=== PATIENT | female | born 1995 | race Caucasian/White ===

== ENCOUNTER 2021-02-10 19:06 | Outpatient (REF) | payer OTHER, SELFPAY | END 2021-02-10 19:07 | disposition home or self-care (01) | LOC: HO.LNP 19:06 | PROVIDERS: Visit Provider Family Medicine | DX: Z20.822 Contact with and (suspected) exposure to COVID-19 (principal) | CPT/HCPCS: U0003; U0005 ==

== ENCOUNTER 2023-05-16 09:35 | Outpatient (REF) | payer OTHER, SELFPAY ==
[2023-05-16 12:14] LABS: Amphetamine Screen Urine Not Detected (Not Detect); Barbiturates, Urine Not Detected (Not Detect); Benzodiazepines Screen Urine Not Detected (Not Detect); Cannabinoid Screen Urine POSITIVE (Not Detect); Cocaine Screen Urine Not Detected (Not Detect); Fentanyl, urine Not Detected (Not Detect); Opiate Screen Urine Not Detected (Not Detect); Phencyclidine Screen Urine Not Detected (Not Detect)
== END 2023-05-16 09:36 | disposition home or self-care (01) ==
LOC: HO.WFDLDS 09:35
PROVIDERS: Visit Provider Internal Medicine
DX: M51.36 Other intervertebral disc degeneration, lumbar region (principal)
CPT/HCPCS: 80307

== ENCOUNTER 2023-08-17 10:45 | Outpatient (AMB) | payer OTHER, SELFPAY ==
[2023-08-17 10:57] VITALS: BP 118/82; PULSE 64; RESP 17; O2SAT 100; BMI 32.9
--- NOTE | 2023-08-17 10:57 | MHC.PC.OV ---
Vital Signs 08/17/23 10:57 Height 5 ft Weight 168 lb 4 oz BMI 32.9 BP 118/82 Blood Pressure Location Lt brachial Position Sitting Respiration 17 Pulse 64 Pulse Source Pulse Oximeter Pulse Oximetry (%) 100 Oxygen Delivery Method Room Air Intake Visit Reasons: ED F/U from [facility] 08/06/23 Intake Note: Pt here for a follow-up appointment following their visit to the [facility]'s emergency department on August 06, 2023, due to a right arm injury. The patient will require a referral to an network and threat support specialist for potential cortisone injections. 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 Accompanied by: Self / Same As Patient Allergies Penicillins [PCN] Allergy (Mild, Verified 08/17/23 11:18) HIVES penicillin V Allergy (Unknown, Verified 08/17/23 11:18) hives Medication List - Last Reconciled 08/17/23 by Logan Vergara PA-C cyclobenzaprine 5 mg PO BID PRN gabapentin 300 mg PO TID tramadol 50 mg PO Q6-8H PRN 30 days Tobacco use date assessed: 12/21/22 Dental Screening Dental Screen Date: 08/17/23 Did you have a dental visit in the last 12 months?: No Did you have a dental problem in the last 6 months where you did not have access to dental care?: No Was dental information given to patient?: Yes HPI ED F/U from [facility] 08/06/23 HPI Details Patient is a 28-year-old female here today for an ED follow-up visit. 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 She was seen at a local ED for her right wrist pain that mostly located over the volar region and radiates into her palm are region. She does report some numbness and tingling at times. She has been wearing a wrist splint with compression glove which is somewhat helpful. She does regularly take tramadol and gabapentin though has not been helping her pain. 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 [facility] Medical History Polysubstance abuse Tobacco abuse Obesity Migraine Bipolar disorder ADD (attention deficit disorder) Asthma Low back pain Surgical History History of cholecystectomy History of section Family History Father Medical history unknown Mother Hypothyroidism High cholesterol COPD (chronic obstructive pulmonary disease) Hypertension Family/Other FH: mental illness Social History Housing: House Alcohol intake: current Alcohol intake frequency: holidays/special occasions only Patient Tobacco Use Status: Current everyday Tobacco user Tobacco use type: Cigarette Cigarettes Per Day: 4 e-Cigarette/Vaping Use: Never Used Second Hand Smoke Exposure: No service: No Current occupational status: employed Cognitive needs: No Hearing needs: No Vision needs: No Questionnaire Thrive Questionnaire Date Thrive assessed: 12/21/22 JARRET-7 AMB Questionnaire JARRET-7 Date JARRET - 7 assessed: 12/21/22 Source: Developed by Drs. Rocael Diaz, Beth Escalona, Moise Enciso and colleagues, with an educational lainey from [employer]. Review of Systems Const Denies headache(s) Eyes Denies loss of vision ENT Denies vertigo, Denies dizziness, Denies headache(s) and Denies sore throat Card Denies chest pain, Denies leg edema and Denies lightheadedness Resp Denies cough, Denies hemoptysis and Denies wheezing GI Denies abdominal pain, Denies melena, Denies constipation, Denies diarrhea and Denies vomiting Denies urinary frequency, Denies dysuria and Denies urinary urgency Musc Denies arthralgias, Denies joint swelling, Denies numbness and Denies tingling Neuro Denies Abnormal speech present, Denies behavioral changes, Denies vertigo, Denies dizziness, Denies headache(s), Denies loss of vision, Denies memory loss, Denies numbness and Denies tingling Psych Denies anxiety, Denies behavioral changes, Denies depression, Denies memory loss and Denies panic attacks Travis/Lymph Denies easy bleeding and Denies easy bruising Aller/Immun Denies wheezing Physical exam (Primary Care) Vital Signs: Last Vital Signs Pulse 64 08/17/23 10:57 Resp 17 08/17/23 10:57 BP 118/82 08/17/23 10:57 Pulse Ox 100 08/17/23 10:57 Oxygen Delivery Method Room Air 08/17/23 10:57 BMI result Body Mass Index 32.9 Tobacco/Smoking Status: Tobacco use Status Tobacco use date assessed 12/21/22 08/17/23 11:01 Patient Tobacco Use Status Current everyday Tobacco 08/17/23 11:01 Tobacco use type Cigarette 08/17/23 11:01 e-Cigarette/Vaping Use Never Used 08/17/23 11:01 Thrive Assessment: Date of Thrive Assessment Date Thrive assessed 12/21/22 08/17/23 11:01 Const General: healthy appearing, no acute distress, alert and awake Nutritional Appearance: well nourished Orientation/consciousness: oriented to person, oriented to place and oriented to time HENMT Ears: TM's normal bilaterally General nose exam: Normal nasal mucous membranes and turbinates present Eyes Conjunctivae: conjunctivae normal Sclerae: sclerae normal Pupils: Equal, round and reactive pupils present Neck Neck: Yes no lymphadenopathy and Yes no JVD Thyroid: Thyroid normal Carotids: no bruits Resp Effort & Inspection: normal respiratory effort and not tachypneic Auscultation: no crackles, no rales, no rhonchi and no wheezes Cardio Rate: regular rate Rhythm: regular rhythm Heart sounds: no murmurs and normal S1 and S2 GI Palpation (GI): Soft to palpation, nontender, no hepatomegaly and no splenomegaly Auscultation: normal bowel sounds Skin General skin exam: no rashes or lesions noted and dry skin Neuro General: oriented to person, oriented to place and oriented to time Cranial nerves: Yes Equal, round and reactive pupils present Speech: No Abnormal speech present Gait exam (Neuro): Normal gait present Motor exam (neuro): no tremor noted Extrem Other: RIGHT WRIST: DECREASED RANGE OF MOTION OF THE RIGHT WRIST DUE TO PAIN STIFFNESS. Right upper extremity: full ROM Left upper extremity: full ROM Hand/finger images: 1. Some tenderness to palpation in the area outlined. No notable swelling Right lower extremity: full ROM; no edema Left lower extremity: full ROM; no edema Psych Mental Status: mental status grossly normal Speech and movement: Normal speech and movement present Affect: normal affect Attitude: cooperative Thought process: Normal thought process present Assessment and Plan Assessment & Plan (1) Right wrist tendinitis: Code(s): M77.8 - Other enthesopathies, not elsewhere classified Plan: Patient's signs and symptoms are concerning for right wrist tendinitis. Will offer anti-inflammatory to use on a daily basis to reduce swelling. Will likely benefit from occupational therapy to reduce hand/ wrist pain. Given patient note for work to be off for the next 2 weeks as rest of the upper extremity may be helpful in this case. Will refer to orthopedics for evaluation of possible need for cortisone injection. (2) Right hand paresthesia: Code(s): R20.2 - Paresthesia of skin Plan: Due to patient's reports of numbness and tingling on occasion in her hand will evaluate for carpal tunnel syndrome with an EMG. Orders: Orders OT Evaluation and Treatment 08/17/23 M77.8 - Other enthesopathies, not elsewhere classified NE electromyogram (EMG) 08/17/23 R20.2 - Paresthesia of skin Referrals Orthopedics Referral M77.8 - Other enthesopathies, not elsewhere classified Medications: New miscellaneous medical supply 1 ea miscellaneous DAILY 99 days 1 ea 0RF M77.8 - Other enthesopathies, not elsewhere classified diclofenac sodium 50 mg PO BID 15 days 30 tabs 0RF M77.8 - Other enthesopathies, not elsewhere classified Refilled tramadol 50 mg PO Q6-8H 30 days PRN 120 tabs 0RF pain M54.5 - Low back pain Coding Level of Care Code Est Pt Level 4 (37352) Diagnoses Right wrist tendinitis M77.8 Right hand paresthesia R20.2
== END 2023-08-17 11:37 | disposition home or self-care (01) ==
PROVIDERS: PCP Internal Medicine; Visit Provider Physician Assistant
DX: M77.8 Other enthesopathies, not elsewhere classified (principal); R20.2 Paresthesia of skin; Z04.2 Encounter for examination and observation following work accident
CPT/HCPCS: 99214

== ENCOUNTER 2023-08-29 09:54 | Outpatient (AMB) | payer OTHER, SELFPAY ==
[2023-08-29 10:01] VITALS: BP 134/78; PULSE 78; O2SAT 98; BMI 33.2
--- NOTE | 2023-08-29 10:01 | A.OFFPC_ITS ---
Vital Signs 08/29/23 10:01 Height 5 ft Weight 170 lb BMI 33.2 BP 134/78 Blood Pressure Location Lt brachial Position Sitting Pulse 78 Pulse Source Pulse Oximeter Pulse Oximetry (%) 98 Oxygen Delivery Method Room Air Intake Visit Reasons: f/u right wrist clifford Allergies Penicillins [PCN] Allergy (Mild, Verified 08/29/23 10:01) HIVES penicillin V Allergy (Unknown, Verified 08/29/23 10:01) hives Tobacco use date assessed: 12/21/22 Dental Screening Dental Screen Date: 08/29/23 Did you have a dental visit in the last 12 months?: Yes Did you have a dental problem in the last 6 months where you did not have access to dental care?: No Was dental information given to patient?: Patient has dentist HPI f/u right wrist clifford HPI Details 28-year-old obese female smoker coming in for follow-up. Patient has an FMLA form brought in. I have last seen the patient November 2022. Review of the notes 08/05/2023 was in ER for right hand wrist pain stated that the pain has been there for 1 and half months x-ray done revealing negative results diagnosis of de Quervain tenosynovitis. Patient has been seen by the nurse practitioner in the office and has been referred to the Ortho. Schedule is 09/20/2023. 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 Patient also complains of having numbness of the right fingers states dropping stuff PFSH Medical History Polysubstance abuse Tobacco abuse Obesity Migraine Bipolar disorder ADD (attention deficit disorder) Asthma Low back pain Surgical History History of cholecystectomy History of section Family History (Updated 08/29/23 @ 10:02 by Gema Watts CMA) Father Medical history unknown Mother Hypothyroidism High cholesterol COPD (chronic obstructive pulmonary disease) Hypertension Family/Other FH: mental illness Social History Housing: House Alcohol intake: current Alcohol intake frequency: holidays/special occasions only Patient Tobacco Use Status: Current everyday Tobacco user Tobacco use type: Cigarette Cigarettes Per Day: 4 e-Cigarette/Vaping Use: Never Used Second Hand Smoke Exposure: No service: No Current occupational status: employed Cognitive needs: No Hearing needs: No Vision needs: No Questionnaire PHQ-9 Over the last 2 weeks, how often have you been bothered by any of the following problems? 1. Little interest or pleasure in doing things: not at all 2. Feeling down, depressed, or hopeless: not at all 3. Trouble falling or staying asleep, or sleeping too much: not at all 4. Feeling tired or having little energy: not at all 5. Poor appetite or overeating: not at all 6. Feeling bad about yourself - or that you are a failure or have let yourself or your family down: not at all 7. Trouble concentrating on things, such as reading the newspaper or watching television: not at all 8. Moving or speaking so slowly that other people could have noticed. Or the opposite - being so fidgety or restless that you have been moving around a lot more than usual: not at all 9. Thoughts that you would be better off or of hurting yourself in some way: not at all Total score: 0 Depression Screening Interpretation: Negative Depression Screening Done: Yes Source: Developed by Drs. Rocael Diaz, Moise Lion and colleagues, with an educational lainey from [employer]. Thrive Questionnaire Date Thrive assessed: 12/21/22 AUDIT C Alcohol Use Questionnaire (AUDIT-C) 1. How often do you have a drink containing alcohol?: Monthly or less 2. How many drinks containing alcohol do you have on a typical day when you are drinking?: 1 or 2 3. How often do you have six or more drinks on one occasion?: Never Total Score: 1 JARRET-7 AMB Questionnaire JARRET-7 Date JARRET - 7 assessed: 12/21/22 Source: Developed by Drs. Rocael Diaz, Moise Lion and colleagues, with an educational lainey from [employer]. Physical exam (Primary Care) Vital Signs: Last Vital Signs Pulse 78 08/29/23 10:01 BP 134/78 08/29/23 10:01 Pulse Ox 98 08/29/23 10:01 Oxygen Delivery Method Room Air 08/29/23 10:01 BMI result Body Mass Index 33.2 Tobacco/Smoking Status: Tobacco use Status Tobacco use date assessed 12/21/22 08/29/23 10:07 Patient Tobacco Use Status Current everyday Tobacco 08/29/23 10:07 Tobacco use type Cigarette 08/29/23 10:07 e-Cigarette/Vaping Use Never Used 08/29/23 10:07 PHQ-9: PHQ-9 Score PHQ-9: Total score 0 08/29/23 10:07 Depression Screening Interpretation: Negative Thrive Assessment: Date of Thrive Assessment Date Thrive assessed 12/21/22 08/29/23 10:07 Const General: alert; No acute distress Eyes Conjunctivae: conjunctivae normal Resp Auscultation: clear to auscultation bilaterally Cardio Rate: regular rate Rhythm: regular rhythm GI Inspection: Yes normal to inspection Extrem General: Yes normal to inspection and No edema Assessment and Plan Assessment & Plan (1) Right wrist tendinitis: Code(s): M77.8 - Other enthesopathies, not elsewhere classified Plan: Patient will be seen by Orthopedics 09/20/2023 (2) Right hand paresthesia: Code(s): R20.2 - Paresthesia of skin Plan: Patient has a nerve conduction test in 09/07/2023 Coding Level of Care Code Est Pt Level 3 (25639) Diagnoses Right wrist tendinitis M77.8 Right hand paresthesia R20.2
== END 2023-08-29 10:42 | disposition home or self-care (01) ==
PROVIDERS: PCP Internal Medicine; Visit Provider Internal Medicine
DX: M77.8 Other enthesopathies, not elsewhere classified (principal); R20.2 Paresthesia of skin
CPT/HCPCS: 99213

== ENCOUNTER 2023-09-20 09:53 | Outpatient (AMB) | payer OTHER, SELFPAY ==
--- NOTE | 2023-09-20 10:01 | A.OFFVIS_ITS ---
Intake Vital Signs 09/20/23 10:10 Height 5 ft 7 in Weight 170 lb BMI 26.6 Handedness Right Intake Visit Reasons: New Pt - right hand pain Intake Note: Cecily is a 28 year old right hand dominant female who presents today as a new patient for a evaluation of her right hand pain. 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 She states that her pain has been ongoing pain for 4 months. Having off and on numbness and tingling on the whole hand. She has a velcro thumb wrist brace which is not providing her with no relief. Patient is also taking Diclofinenac 50 mg which is not giving her relief per patient. Allergies Penicillins [PCN] Allergy (Mild, Verified 09/20/23 10:08) HIVES penicillin V Allergy (Unknown, Verified 09/20/23 10:08) hives HPI New Pt - right hand pain HPI Details 28-year-old right hand dominant female anyi artis presents in the office today, as a new patient, for an evaluation of right hand pain. 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 She states she has intermittent numbness and tingling in the right hand. She claims she has been using a velcro thumb wrist brace with no relief. She confirms taking Diclofenac 50 mg with no relief. 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 [facility] Medical History Polysubstance abuse Tobacco abuse Obesity Migraine Bipolar disorder ADD (attention deficit disorder) Asthma Low back pain Surgical History History of cholecystectomy History of section Family History (Updated 08/29/23 @ 10:02 by Gema Watts CMA) Father Medical history unknown Mother Hypothyroidism High cholesterol COPD (chronic obstructive pulmonary disease) Hypertension Family/Other FH: mental illness Housing: House Alcohol intake: current Alcohol intake frequency: holidays/special occasions only Patient Tobacco Use Status: Current everyday Tobacco user Tobacco use type: Cigarette Cigarettes Per Day: 4 e-Cigarette/Vaping Use: Never Used Second Hand Smoke Exposure: No service: No Current occupational status: employed Cognitive needs: No Hearing needs: No Vision needs: No Review of Systems Const All systems reviewed & are unremarkable except as noted in HPI and below Physical Exam Vital Signs: BMI result Body Mass Index 26.6 Const General: cooperative and no acute distress Orientation/consciousness: patient oriented x3 Resp Effort & Inspection: normal respiratory effort and able to speak in complete sentences Cardio Peripheral pulses: Peripheral pulses 2+ throughout Skin General skin exam: no rashes or lesions noted Neuro General: patient oriented x3 Extrem Other: Right hand: Numbness and tingling in the entire hand intermittently. Unable to assess Tinel's due to pain. Tenderness to palpation along the first dorsal compartment. Unable to assess Finklestein's due to pain. Unable to assess Tinel's due to pain. Right hand is normal to inspection. No ecchymosis, erythema, or edema. Able to perform full finger flexion, extension, abduction, adduction, finger cross, okay sign, and thumbs up without deficit. Able to make a closed fist. Capillary refill is brisk. Radial pulse intact. Assessment & Plan Assessment & Plan (1) Right carpal tunnel syndrome: Code(s): G56.01 - Carpal tunnel syndrome, right upper limb (2) De Quervain's tenosynovitis, right: Code(s): M65.4 - Radial styloid tenosynovitis [de Quervain] Plan Ms. Dimas is a 28-year-old right hand dominant female who presents in the office today, as a new patient, for an evaluation of right hand pain. 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 She states she has intermittent numbness and tingling in the right hand. She claims she has been using a velcro thumb wrist brace with no relief. She confirms taking Diclofenac 50 mg with no relief. 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 The patient is scheduled for an EMG study on 10/05/2023. She is here today to discuss her work status. At this time she will be out of work until her follow up. She is currently wearing a velcro thumb spica splint, which I feel is appropriate at this time to allow for the rest of her thumb and associated pain from the de quervain?s. However, I instructed the patient that she should come out of the splint multiple times a day to work on gentle ROM to help avoid stiffness. Exercises were demonstrated for her while in the office today and she demonstrates understanding. Follow up will be with Dr. Gonzalez after the EMG is obtained. Patient Instructions: Scribed for Bhakti Waldron PA-C by Amy Mehta medical instructor, on 09/20/2023 at 9:56 am, EST. Coding Level of Care Code New Pt Level 4 (60143) Diagnoses Right carpal tunnel syndrome G56.01 De Quervain's tenosynovitis, right M65.4
[2023-09-20 10:10] VITALS: BMI 26.6
== END 2023-09-20 10:48 | disposition home or self-care (01) ==
PROVIDERS: PCP Internal Medicine; Visit Provider Physician Assistant
DX: G56.01 Carpal tunnel syndrome, right upper limb (principal); M65.4 Radial styloid tenosynovitis [de Quervain]
CPT/HCPCS: 99203

== ENCOUNTER → 2023-09-20 09:53 | Outpatient (BNVA) | payer OTHER, SELFPAY | PROVIDERS: PCP Internal Medicine; Visit Provider Physician Assistant | DX: G56.01 Carpal tunnel syndrome, right upper limb (principal); M65.4 Radial styloid tenosynovitis [de Quervain] | CPT/HCPCS: 99202 ==

== ENCOUNTER 2023-09-23 11:56 | Outpatient (AMB) | payer OTHER, SELFPAY ==
[2023-09-23 12:03] VITALS: BP 104/70; PULSE 62; O2SAT 99; BMI 33.5
--- NOTE | 2023-09-23 12:03 | A.OFFPC_ITS ---
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 John sloan of Dr. Lyman last seen in August. Patient brought in FMLA paperwork for completion at that time. for right hand wrist pain stated that the pain has been there for 1 and half months x-ray done revealing negative results diagnosis of de Quervain tenosynovitis. 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 FMLA paper work was completed by them and patient to be out of work until her follow up with ortho on 10/05/23. Patient questioning what happens when her FMLA runs out, patient made aware ortho will see her at her follow up, dicuss what her testing shows and further plan with patient at time. Pateint verbalizes understanding. Patient requesting tramadol refill and diclofenac cream refill. previously sent by Dr. Lyman, RX sent. [facility] Medical History Polysubstance abuse Tobacco abuse Obesity Migraine Bipolar disorder ADD (attention deficit disorder) Asthma Low back pain Surgical History History of cholecystectomy History of section Family History Father Medical history unknown Mother Hypothyroidism High cholesterol COPD (chronic obstructive pulmonary disease) Hypertension Family/Other FH: mental illness Social History Housing: House Alcohol intake: current Alcohol intake frequency: holidays/special occasions only Patient Tobacco Use Status: Current everyday Tobacco user Tobacco use type: Cigarette Cigarettes Per Day: 4 e-Cigarette/Vaping Use: Never Used Second Hand Smoke Exposure: No service: No Current occupational status: employed Cognitive needs: No Hearing needs: No Vision needs: No Questionnaire PHQ-9 Over the last 2 weeks, how often have you been bothered by any of the following problems? 1. Little interest or pleasure in doing things: not at all 2. Feeling down, depressed, or hopeless: not at all 3. Trouble falling or staying asleep, or sleeping too much: not at all 4. Feeling tired or having little energy: not at all 5. Poor appetite or overeating: not at all 6. Feeling bad about yourself - or that you are a failure or have let yourself or your family down: not at all 7. Trouble concentrating on things, such as reading the newspaper or watching television: not at all 8. Moving or speaking so slowly that other people could have noticed. Or the opposite - being so fidgety or restless that you have been moving around a lot more than usual: not at all 9. Thoughts that you would be better off or of hurting yourself in some way: not at all Total score: 0 Depression Screening Interpretation: Negative Depression Screening Done: Yes Source: Developed by Drs. Rocael Diaz, Beth Escalona, Moise Enciso and colleagues, with an educational lainey from [employer]. Thrive Questionnaire Date Thrive assessed: 12/21/22 JARRET-7 AMB Questionnaire JARRET-7 Date JARRET - 7 assessed: 12/21/22 Source: Developed by Drs. Rocael Diaz, Beth Escalona, Moise Enciso and colleagues, with an educational lainey from [employer]. Review of Systems Const Denies chills, Denies fatigue, Denies fever(s) and Denies poor appetite Eyes Denies no additional complaints ENT Reports Normal hearing present Card Denies chest pain, Denies syncope, Denies rapid heart rate and Denies dyspnea Resp Denies cough and Denies dyspnea GI Denies change in stool character, Denies constipation, Denies diarrhea, Denies nausea and Denies vomiting Denies urinary frequency, Denies dysuria and Denies urinary urgency Neuro Reports Normal hearing present, Denies confusion and Denies syncope Psych Denies confusion Endo Denies fatigue Physical exam (Primary Care) Vital Signs: Last Vital Signs Pulse 62 09/23/23 12:03 BP 104/70 09/23/23 12:03 Pulse Ox 99 09/23/23 12:03 Oxygen Delivery Method Room Air 09/23/23 12:03 BMI result Body Mass Index 33.5 Tobacco/Smoking Status: Tobacco use Status Tobacco use date assessed 12/21/22 09/23/23 12:05 Patient Tobacco Use Status Current everyday Tobacco 09/23/23 12:05 Tobacco use type Cigarette 09/23/23 12:05 e-Cigarette/Vaping Use Never Used 09/23/23 12:05 PHQ-9: PHQ-9 Score PHQ-9: Total score 0 09/23/23 12:16 Depression Screening Interpretation: Negative Thrive Assessment: Date of Thrive Assessment Date Thrive assessed 12/21/22 09/23/23 12:05 Const General: No confusion Orientation/consciousness: No confusion HENMT Head: Yes normocephalic and Yes atraumatic Eyes Conjunctivae: conjunctivae normal Chest Chest palpation & inspection: normal inspection of the chest Resp Effort & Inspection: normal respiratory effort Auscultation: clear to auscultation bilaterally, no crackles, no rhonchi and no wheezes Cardio Rate: regular rate Rhythm: regular rhythm Heart sounds: S1 normal heart sound present and S2 normal heart sound present GI Inspection: Yes normal to inspection Neuro General: No confusion Cranial nerves: Yes Normal hearing present Extrem General: No edema Assessment and Plan Assessment & Plan (1) De Quervain's tenosynovitis, right: Code(s): M65.4 - Radial styloid tenosynovitis [de Quervain] Plan: Continue to follow-up with orthopedic. MARY ANN paperwork completed by orthopedic. Patient has upcoming appointment scheduled on 10/05/2023 for which she will discuss plan of care. Refill sent on diclofenac cream Refill sent on patient's tramadol. (2) Lumbar degenerative disc disease: Code(s): M51.36 - Other intervertebral disc degeneration, lumbar region Plan: Patient currently following with [facility]. Patient requesting refill on gabapentin and cyclobenzaprine which are prescribed by [facility]. Patient advised to follow-up with them for refills on these medications. Patient agreeable to plan of care. Plan Keep scheduled follow-up with PCP or follow-up sooner if needed. Medications: Refilled diclofenac sodium 50 mg PO BID 15 days 30 tabs 0RF M77.8 - Other enthesopathies, not elsewhere classified tramadol 50 mg PO Q6-8H 30 days PRN 120 tabs 0RF pain M54.5 - Low back pain Coding Level of Care Code Est Pt Level 3 (58457) Diagnoses De Quervain's tenosynovitis, right M65.4 Lumbar degenerative disc disease M51.36
== END 2023-09-23 13:01 | disposition home or self-care (01) ==
PROVIDERS: PCP Internal Medicine; Visit Provider Nurse Practitioner Family
DX: M65.4 Radial styloid tenosynovitis [de Quervain] (principal); M51.36 Other intervertebral disc degeneration, lumbar region
CPT/HCPCS: 99213

== ENCOUNTER 2023-09-29 11:50 | Outpatient (REF) | payer OTHER, SELFPAY ==
[2023-09-29 14:50] LABS: Amphetamine Screen Urine Not Detected (Not Detect); Barbiturates, Urine Not Detected (Not Detect); Benzodiazepines Screen Urine Not Detected (Not Detect); Cannabinoid Screen Urine POSITIVE (Not Detect); Cocaine Screen Urine Not Detected (Not Detect); Fentanyl, urine Not Detected (Not Detect); Opiate Screen Urine Not Detected (Not Detect); Phencyclidine Screen Urine Not Detected (Not Detect)
== END 2023-09-29 11:51 | disposition home or self-care (01) ==
LOC: HO.WFDLDS 11:50
PROVIDERS: Visit Provider Internal Medicine
DX: M51.36 Other intervertebral disc degeneration, lumbar region (principal)
CPT/HCPCS: 80307

== ENCOUNTER 2023-10-05 10:16 | Outpatient (REF) | payer OTHER, SELFPAY ==
--- NOTE | 2023-10-05 10:19 | EMG_ITS ---
Please see scanned EMG / Nerve Conduction Report. MTDD
== END 2023-10-05 10:17 | disposition home or self-care (01) ==
LOC: HO.NEURO 10:16
PROVIDERS: PCP Internal Medicine; Visit Provider Physician Assistant
DX: R20.2 Paresthesia of skin (principal)
CPT/HCPCS: 95886; 95911

== ENCOUNTER 2024-02-15 14:38 | Outpatient (AMB) | payer OTHER, SELFPAY ==
--- NOTE | 2024-02-15 14:38 | A.OFFPC_ITS ---
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 Allergies Penicillins [PCN] Allergy (Mild, Verified 02/15/24 14:39) HIVES penicillin V Allergy (Unknown, Verified 02/15/24 14:39) hives Medication List - Last Reconciled 02/15/24 by Isabel Lyman MD cyclobenzaprine 5 mg PO BID PRN gabapentin 300 mg PO TID miscellaneous medical supply 1 ea miscellaneous DAILY 99 days tramadol 50 mg PO Q6-8H PRN 30 days Tobacco use date assessed: 02/15/24 Dental Screening Dental Screen Date: 09/23/23 HPI 3M Follow Up 2 HPI Details 28-year-old obese female with a history of right de Quervain tenosynovitis and lumbar disc degenerative disease last seen in September 2023. Patient coming in through Telehealth. Patient complains of low back pain denies any fall or trauma and discussed with the patient that with her BMI with height of 4'11 body mass index is running at 33 she does have to lose the weight. Reminded also about the blood work. [facility] Medical History Polysubstance abuse Tobacco abuse Obesity Migraine Bipolar disorder ADD (attention deficit disorder) Asthma Low back pain Surgical History History of cholecystectomy History of section Family History Father Medical history unknown Mother Hypothyroidism High cholesterol COPD (chronic obstructive pulmonary disease) Hypertension Family/Other FH: mental illness Social History Housing: House Alcohol intake: current Alcohol intake frequency: holidays/special occasions only Patient Tobacco Use Status: Current everyday Tobacco user Tobacco use type: Cigarette Cigarettes Per Day: 4 e-Cigarette/Vaping Use: Never Used Second Hand Smoke Exposure: No service: No Current occupational status: employed Cognitive needs: No Hearing needs: No Vision needs: No Questionnaire Thrive Questionnaire Date Thrive assessed: 12/21/22 AUDIT C Alcohol Use Questionnaire (AUDIT-C) 1. How often do you have a drink containing alcohol?: Monthly or less 2. How many drinks containing alcohol do you have on a typical day when you are drinking?: 1 or 2 3. How often do you have six or more drinks on one occasion?: Never Total Score: 1 JARRET-7 AMB Questionnaire JARRET-7 Date JARRET - 7 assessed: 12/21/22 Source: Developed by Drs. Rocael Diaz, Beth Escalona, Moise olsen nd colleagues, with an educational lainey from [employer]. Physical exam (Primary Care) Tobacco/Smoking Status: Tobacco use Status Tobacco use date assessed 02/15/24 02/15/24 14:40 Patient Tobacco Use Status Current everyday Tobacco 02/15/24 14:40 Tobacco use type Cigarette 02/15/24 14:40 e-Cigarette/Vaping Use Never Used 02/15/24 14:40 Thrive Assessment: Date of Thrive Assessment Date Thrive assessed 12/21/22 02/15/24 14:40 Telehealth Telehealth Telehealth Platform: Telephone Location of provider rendering services: practice address Location of patient: address on file Patient Identification confirmed using: Name, : Yes Telehealth method: video (iphone ) Patient verbally consented to treatment: Yes Patient verbally consented to billing insurance company: Yes Patient informed of any privacy concerns related to visit: Yes Assessment and Plan Assessment & Plan (1) Obesity: Code(s): E66.9 - Obesity, unspecified Qualifiers: Obesity type: due to excess calories Obesity classification: adult class 3 (BMI >= 40) Serious obesity comorbidity presence: without serious comorbidity Body mass index: BMI 40.0-44.9 Qualified Code(s): E66.01 - Morbid (severe) obesity due to excess calories; Z68.41 - Body mass index [BMI]40.0- 44.9, adult Plan: Diet and exercise (2) Low back pain: Comment: MRI January 2019 small annulus tear lumbar, x-ray 2018 mild degenerative lumbar disc with anterolisthesis 2 mm Code(s): M54.5 - Low back pain Plan: Patient presently on pain medication and advised to get x-rays done (3) Tobacco abuse: Comment: Vaping November 2022 Code(s): Z72.0 - Tobacco use Plan: Patient was advised strongly to stop! Orders: Orders XR lumbar spine 2-3V Today M51.36 - Other intervertebral disc degeneration, lumbar region Free T4 (Free Thyroxine) Today M51.36 - Other intervertebral disc degeneration, lumbar region Vitamin B12 and Folate Today M51.36 - Other intervertebral disc degeneration, lumbar region Complete Blood Count Auto Diff Today M51.36 - Other intervertebral disc degeneration, lumbar region Comprehensive Met. Panel Today M51.36 - Other intervertebral disc degeneration, lumbar region Thyroid Stimulating Hormone Today M51.36 - Other intervertebral disc degeneration, lumbar region Lipid Panel Today E78.00 - Pure hypercholesterolemia, unspecified, M51.36 - Other intervertebral disc degeneration, lumbar region Medications: Discontinued diclofenac sodium Discontinued Reason: Doctor's Order 50 mg PO BID 15 days 30 tabs 0RF M77.8 - Other enthesopathies, not elsewhere classified Coding Level of Care Code Tele Est Pt Level 4 (81446) Diagnoses Class 3 severe obesity due to excess calories without serious comorbidity with body mass index (BMI) of 40.0 to 44.9 in adult E66.01; Z68.41 Obesity type: due to excess calories Obesity classification: adult class 3 (BMI >= 40) Serious obesity comorbidity presence: without serious comorbidity Body mass index: BMI 40.0-44.9 Low back pain M54.5 Tobacco abuse Z72.0
== END 2024-02-15 15:55 | disposition home or self-care (01) ==
LOC: HO.HMGH 14:38
PROVIDERS: PCP Internal Medicine; Visit Provider Internal Medicine
DX: E66.01 Morbid (severe) obesity due to excess calories (principal); Z68.41 Body mass index [BMI] 40.0-44.9, adult; M54.50 Low back pain, unspecified; F17.210 Nicotine dependence, cigarettes, uncomplicated
CPT/HCPCS: 99214

== ENCOUNTER 2024-05-03 12:55 | Outpatient (AMB) | payer OTHER, SELFPAY ==
--- NOTE | 2024-05-03 13:00 | AM.OFFWIN_ITS ---
Intake Vital Signs 05/03/24 13:02 Height 4 ft 11 in Weight 164 lb 4 oz BMI 33.2 BP 128/80 Blood Pressure Location Rt brachial Position Sitting Pulse 73 Pulse Source Pulse Oximeter Pulse Oximetry (%) 98 Oxygen Delivery Method Room Air Intake Visit Reasons: EP ?shingles Intake Note: pt is here for possible shingles Patient Tobacco Use Status: Current everyday Tobacco user Allergies Penicillins [PCN] Allergy (Mild, Verified 05/03/24 13:01) HIVES penicillin V Allergy (Unknown, Verified 05/03/24 13:01) hives Do you need a note to return to daycare/school/sports/work: Yes HPI HPI Comments History of Present Illness Details 29 y/o female patient who presents to [facility] in clinic with c/o Rash. Reports noticing small red bumps on both Arms (Anterior Elbow) and upper Arms. Describes the rash as very itchy and sometimes burning. [facility] Medical History Polysubstance abuse Tobacco abuse Obesity Migraine Bipolar disorder ADD (attention deficit disorder) Asthma Low back pain Surgical History History of cholecystectomy History of section Family History Father Medical history unknown Mother Hypothyroidism High cholesterol COPD (chronic obstructive pulmonary disease) Hypertension Family/Other FH: mental illness Social History Housing: House Alcohol intake: current Alcohol intake frequency: holidays/special occasions only Patient Tobacco Use Status: Current everyday Tobacco user Tobacco use type: Cigarette Cigarettes Per Day: 4 e-Cigarette/Vaping Use: Never Used Second Hand Smoke Exposure: No service: No Current occupational status: employed Cognitive needs: No Hearing needs: No Vision needs: No Review of Systems Const All systems reviewed & are unremarkable except as noted in HPI and below Physical Exam Vital Signs: Last Vital Signs Pulse 73 05/03/24 13:02 BP 128/80 05/03/24 13:02 Pulse Ox 98 05/03/24 13:02 Oxygen Delivery Method Room Air 05/03/24 13:02 BMI result Body Mass Index 33.2 Const General: comfortable and no acute distress Nutritional Appearance: obese Orientation/consciousness: patient oriented x3 Skin General skin exam: dry skin and erythema Rashes: rashes noted (Bilateral Arms with macular papular rash erythematous Anterior elbows ) Neuro General: patient oriented x3, gait normal and moves all extremities Psych Speech and movement: Normal speech and movement present Assessment & Plan Assessment & Plan (1) Rash and nonspecific skin eruption: Code(s): R21 - Rash and other nonspecific skin eruption Plan: Exam consistent with contact Dermatitis. Will Treat with mild topical steroid cream for 7 days. Medications: New triamcinolone acetonide 0.1% 1 appl topical BID 15 grams 0RF R21 - Rash and other nonspecific skin eruption Coding Level of Care Code Est Pt Level 3 (01867) Diagnoses Rash and nonspecific skin eruption R21 Time Spent (min) 15
[2024-05-03 13:02] VITALS: BP 128/80; PULSE 73; O2SAT 98; BMI 33.2
== END 2024-05-03 14:07 | disposition home or self-care (01) ==
PROVIDERS: PCP Internal Medicine; Visit Provider Nurse Practitioner Family
DX: R21 Rash and other nonspecific skin eruption (principal)
CPT/HCPCS: 99213

== ENCOUNTER 2024-06-04 08:16 | Outpatient (AMB) | payer OTHER, SELFPAY ==
[2024-06-04 08:20] VITALS: BP 138/78; PULSE 70; O2SAT 98; BMI 33.0
--- NOTE | 2024-06-04 08:20 | A.OFFPC_ITS ---
Vital Signs 3 06/04/24 08:20 Height 5 ft Weight 169 lb BMI 33.0 BP 138/78 Blood Pressure Location Lt brachial Position Sitting Pulse 70 Pulse Source Pulse Oximeter Pulse Oximetry (%) 98 Oxygen Delivery Method Room Air Intake Visit Reasons: Follow up Allergies Penicillins [PCN] Allergy (Mild, Verified 06/04/24 08:21) HIVES penicillin V Allergy (Unknown, Verified 06/04/24 08:21) hives Tobacco use date assessed: 02/15/24 Dental Screening Dental Screen Date: 06/04/24 Did you have a dental visit in the last 12 months?: Yes Did you have a dental problem in the last 6 months where you did not have access to dental care?: No Was dental information given to patient?: Patient has dentist HPI Follow up 2 HPI0 Details 29-year-old obese female smoker with a h istory of asthma, lumbar degenerative disc disease last seen in 02/11/2024. seeing counsellor private practice- was advised need for med but advised patient to send me notes.[facility] was seen and was advised MRI and ordered alsready . patient also has a growth on the lower back - has tried taking this out but still growing [facility] Medical History Polysubstance abuse Tobacco abuse Obesity Migraine Bipolar disorder ADD (attention deficit disorder) Asthma Low back pain Surgical History History of cholecystectomy History of section Family History Father Medical history unknown Mother Hypothyroidism High cholesterol COPD (chronic obstructive pulmonary disease) Hypertension Family/Other FH: mental illness Social History Housing: House Alcohol intake: current Alcohol intake frequency: holidays/special occasions only Patient Tobacco Use Status: Current everyday Tobacco user Tobacco use type: Cigarette Cigarettes Per Day: 12 e-Cigarette/Vaping Use: Never Used Second Hand Smoke Exposure: Yes service: No Current occupational status: employed Cognitive needs: No Hearing needs: No Vision needs: No Questionnaire PHQ-9 Over the last 2 weeks, how often have you been bothered by any of the following problems? 1. Little interest or pleasure in doing things: not at all 2. Feeling down, depressed, or hopeless: not at all 3. Trouble falling or staying asleep, or sleeping too much: not at all 4. Feeling tired or having little energy: not at all 5. Poor appetite or overeating: not at all 6. Feeling bad about yourself - or that you are a failure or have let yourself or your family down: not at all 7. Trouble concentrating on things, such as reading the newspaper or watching television: not at all 8. Moving or speaking so slowly that other people could have noticed. Or the opposite - being so fidgety or restless that you have been moving around a lot more than usual: not at all 9. Thoughts that you would be better off or of hurting yourself in some way: not at all Total score: 0 Depression Screening Interpretation: Negative Depression Screening Done: Yes Source: Developed by Drs. Rocael Diaz, Beth Escalona, Moise Enciso and colleagues, with an educational lainey from [employer]. Thrive Questionnaire Date Thrive assessed: 06/04/24 I am a: Patient What is your living situation today?: I have a steady place to live Within the past 12 months, did the food you bought not last and you didn't have the money to get more?: Never true Within the past 12 months, did you worry whether your food would run out before you got money to buy more?: Never true Do you have trouble paying for medicines?: No Do you have trouble getting transportation to medical appointments?: No Do you have trouble paying your heating and electricity bill?: No Do you have trouble taking care of your child, family member or friend?: No Do you have trouble with day-to-day activities such as bathing, preparing meals, shopping, managing finances, etc.?: No Are you currently unemployed and looking for a job?: No Are you interested in more education?: No Currently or been in a relationship where the following occur: No concerns reported THRIVE Score: 0 AUDIT C Alcohol Use Questionnaire (AUDIT-C) 1. How often do you have a drink containing alcohol?: Monthly or less 2. How many drinks containing alcohol do you have on a typical day when you are drinking?: 1 or 2 3. How often do you have six or more drinks on one occasion?: Never Total Score: 1 JARRET-7 AMB Questionnaire JARRET-7 Date JARRET - 7 assessed: 06/04/24 Feeling nervous, anxious, or on edge: 0 = Not at all Not being able to stop or control worryin = Not at all Worrying too much about different things: 0 = Not at all Trouble relaxin = Not at all Being so restless that it is hard to sit still: 0 = Not at all Becoming easily annoyed or irritable: 0 = Not at all Feeling afraid as if something awful might happen: 0 = Not at all Total JARRET-7 score (0-4 normal; 5-9 mild; 10-14 moderate; 15-21 severe): 0 Source: Developed by Drs. Rocael Diaz, Beth Escalona, Moise Enciso and colleagues, with an educational lainey from [employer]. Physical exam (Primary Care) Vital Signs: Last Vital Signs Pulse 70 06/04/24 08:20 BP 138/78 06/04/24 08:20 Pulse Ox 98 06/04/24 08:20 Oxygen Delivery Method Room Air 06/04/24 08:20 BMI result Body Mass Index 33.0 Tobacco/Smoking Status: Tobacco use Status Tobacco use date assessed 02/15/24 06/04/24 08:23 Patient Tobacco Use Status Current everyday Tobacco 06/04/24 08:23 Tobacco use type Cigarette 06/04/24 08:23 e-Cigarette/Vaping Use Never Used 06/04/24 08:23 PHQ-9: PHQ-9 Score PHQ-9: Total score 0 06/04/24 08:41 Depression Screening Interpretation: Negative Thrive Assessment: Date of Thrive Assessment Date Thrive assessed 06/04/24 06/04/24 08:23 Currently or been in a relationship where the following occur: No concerns reported Const General: alert; No acute distress Eyes Conjunctivae: conjunctivae normal Resp Auscultation: clear to auscultation bilaterally Cardio Rate: regular rate Rhythm: regular rhythm GI Inspection: Yes normal to inspection Back/Spine/Pelvis Back/spine/pelvis image: 2 1. 5 mm growth polypoid with roung surface tip Extrem General: Yes normal to inspection and No edema Assessment and Plan Assessment & Plan (1) Obesity: Code(s): E66.9 - Obesity, unspecified Qualifiers: Obesity type: due to excess calories Obesity classification: adult class 3 (BMI >= 40) Serious obesity comorbidity presence: without serious comorbidity Body mass index: BMI 40.0-44.9 Qualified Code(s): E66.01 - Morbid (severe) obesity due to excess calories; Z68.41 - Body mass index [BMI]40.0- 44.9, adult Plan: diet and exercise (2) Asthma: Code(s): J45.909 - Unspecified asthma, uncomplicated Plan: Patient has advised strongly to stop smoking! Presently no need for inhalers. (3) Tobacco abuse: Comment: Vaping November 2022 Code(s): Z72.0 - Tobacco use Plan: Patient is strongly advised to stop smoking!. (4) Low back pain: Comment: MRI January 2019 small annulus tear lumbar, x-ray 2018 mild degenerative lumbar disc with anterolisthesis 2 mm Code(s): M54.5 - Low back pain Plan: Keep active and continue with med. (5) Generalized anxiety disorder: Code(s): F41.1 - Generalized anxiety disorder Plan: Patient follows up with a private therapist and has been advised to start on medication. Discussed with the patient for the therapist to send me a note. (6) Wart viral: Comment: Lower back05/2024 Code(s): B07.9 - Viral wart, unspecified Plan: Referral to dermatology done Orders: Referrals 2 Dermatology Referral B07.9 - Viral wart, unspecified Medications: New 2 sertraline 25 mg PO DAILY 30 tabs 2RF F41.1 - Generalized anxiety disorder Coding Level of Care Code Est Pt Level 4 (20017) Diagnoses Class 3 severe obesity due to excess calories without serious comorbidity with body mass index (BMI) of 40.0 to 44.9 in adult E66.01; Z68.41 Obesity type: due to excess calories Obesity classification: adult class 3 (BMI >= 40) Serious obesity comorbidity presence: without serious comorbidity Body mass index: BMI 40.0-44.9 Asthma J45.909 Tobacco abuse Z72.0 Low back pain M54.5 Generalized anxiety disorder F41.1 Wart viral B07.9
== END 2024-06-04 09:10 | disposition home or self-care (01) ==
PROVIDERS: PCP Internal Medicine; Visit Provider Internal Medicine
DX: J45.909 Unspecified asthma, uncomplicated (principal); E66.01 Morbid (severe) obesity due to excess calories; Z68.41 Body mass index [BMI] 40.0-44.9, adult; Z72.0 Tobacco use; M54.50 Low back pain, unspecified; F41.1 Generalized anxiety disorder; B07.9 Viral wart, unspecified
CPT/HCPCS: 99214

== ENCOUNTER 2024-07-09 16:03 | Outpatient (AMB) | payer OTHER, SELFPAY ==
--- NOTE | 2024-07-09 16:40 | MHC.PC.OV ---
Vital Signs 07/09/24 16:41 07/09/24 17:18 Height 5 ft Weight 169 lb 8 oz BMI 33.1 BP 146/96 H 130/80 Blood Pressure Location Lt brachial Lt brachial Position Sitting Sitting Pulse 75 Pulse Source Pulse Oximeter Pulse Oximetry (%) 98 Oxygen Delivery Method Room Air Intake Visit Reasons: PE Allergies Penicillins [PCN] Allergy (Mild, Verified 06/04/24 08:21) HIVES penicillin V Allergy (Unknown, Verified 06/04/24 08:21) hives Medication List - Last Reconciled 07/09/24 by Isabel Lyman MD cyclobenzaprine 5 mg PO BID PRN gabapentin 600 mg PO TID miscellaneous medical supply 1 ea miscellaneous DAILY 99 days sertraline 25 mg PO DAILY tramadol 50 mg PO Q6-8H PRN 30 days Tobacco use date assessed: 02/15/24 Dental Screening Dental Screen Date: 06/04/24 HPI PE HPI Details 29-year-old obese female smoker with asthma generalized anxiety disorder with low back pain last seen in 06/12/2024 patient is here for physical exam. Review of the notes patient was in the emergency room in June 20 for left 2nd digit laceration using a kitchen knife laceration use Dermabond left 2nd digit avulsion diagnosis. [facility] Medical History Polysubstance abuse Tobacco abuse Obesity Migraine Bipolar disorder ADD (attention deficit disorder) Asthma Low back pain Surgical History History of cholecystectomy History of section Family History (Updated 07/09/24 @ 17:20 by Isabel Lyman MD) Father Medical history unknown Mother Hypothyroidism High cholesterol COPD (chronic obstructive pulmonary disease) Hypertension Family/Other FH: mental illness Maternal Grandmother Myocardial infarction Social History (Updated 07/09/24 @ 17:21 by Isabel Lyman MD) Housing: House Alcohol intake: never Patient Tobacco Use Status: Current everyday Tobacco user Tobacco use type: Cigarette Cigarettes Per Day: 5 Years Smoked: does weed e-Cigarette/Vaping Use: Never Used Second Hand Smoke Exposure: Yes service: No Current occupational status: employed Cognitive needs: No Hearing needs: No Vision needs: No Questionnaire PHQ-9 Over the last 2 weeks, how often have you been bothered by any of the following problems? 1. Little interest or pleasure in doing things: nearly every day 2. Feeling down, depressed, or hopeless: nearly every day 3. Trouble falling or staying asleep, or sleeping too much: nearly every day 4. Feeling tired or having little energy: nearly every day 5. Poor appetite or overeating: nearly every day 6. Feeling bad about yourself - or that you are a failure or have let yourself or your family down: not at all 7. Trouble concentrating on things, such as reading the newspaper or watching television: not at all 8. Moving or speaking so slowly that other people could have noticed. Or the opposite - being so fidgety or restless that you have been moving around a lot more than usual: nearly every day 9. Thoughts that you would be better off or of hurting yourself in some way: several days Total score: 19 02441 - PHQ-9 Billing: Yes Source: Developed by Drs. Rocael Diaz, Beth Escalona, Moise Enciso and colleagues, with an educational lainey from [employer]. Thrive Questionnaire Date Thrive assessed: 07/09/24 I am a: Patient What is your living situation today?: I choose not to answer this question Within the past 12 months, did the food you bought not last and you didn't have the money to get more?: Never true Within the past 12 months, did you worry whether your food would run out before you got money to buy more?: Never true Do you have trouble paying for medicines?: No Do you have trouble getting transportation to medical appointments?: No Do you have trouble paying your heating and electricity bill?: No Do you have trouble taking care of your child, family member or friend?: No Do you have trouble with day-to-day activities such as bathing, preparing meals, shopping, managing finances, etc.?: No Are you currently unemployed and looking for a job?: No Are you interested in more education?: No Please select the resources that you would like help with: None Currently or been in a relationship where the following occur: No concerns reported THRIVE Score: 0 AUDIT C Alcohol Use Questionnaire (AUDIT-C) 1. How often do you have a drink containing alcohol?: Monthly or less 2. How many drinks containing alcohol do you have on a typical day when you are drinking?: 1 or 2 3. How often do you have six or more drinks on one occasion?: Never Total Score: 1 JARRET-7 AMB Questionnaire JARRET-7 Date JARRET - 7 assessed: 07/09/24 Feeling nervous, anxious, or on edge: 0 = Not at all Not being able to stop or control worryin = Not at all Worrying too much about different things: 0 = Not at all Trouble relaxin = Not at all Being so restless that it is hard to sit still: 0 = Not at all Becoming easily annoyed or irritable: 0 = Not at all Feeling afraid as if something awful might happen: 0 = Not at all Total JARRET-7 score (0-4 normal; 5-9 mild; 10-14 moderate; 15-21 severe): 0 Source: Developed by Drs. Rocael Diaz, Beth Escalona, Moise Enciso and colleagues, with an educational lainey from [employer]. JARRET-7 Assessment Billing JARRET-7 Assessment Tool: JARRET-7 Assessment 54521 Review of Systems Const Denies poor appetite and Denies weakness Eyes Denies no additional complaints ENT Reports Normal hearing present, Denies dizziness, Denies nasal congestion, Denies tinnitus and Denies sore throat Card Denies chest pain, Denies syncope, Denies rapid heart rate and Denies dyspnea Resp Denies cough and Denies dyspnea GI Denies change in stool character, Reports constipation, Denies diarrhea, Denies nausea and Denies vomiting Denies urinary frequency, Denies difficulty voiding and Denies dysuria Neuro Reports Normal hearing present, Denies confusion, Denies dizziness, Denies syncope and Denies weakness Psych Denies confusion Physical exam (Primary Care) Vital Signs: Last Vital Signs Pulse 75 07/09/24 16:41 BP 146/96 H 07/09/24 16:41 Pulse Ox 98 07/09/24 16:41 Oxygen Delivery Method Room Air 07/09/24 16:41 BMI result Body Mass Index 33.1 Tobacco/Smoking Status: Tobacco use Status Tobacco use date assessed 02/15/24 07/09/24 16:47 Patient Tobacco Use Status Current everyday Tobacco 07/09/24 16:47 Tobacco use type Cigarette 07/09/24 16:47 e-Cigarette/Vaping Use Never Used 07/09/24 16:47 PHQ-9: PHQ-9 Score PHQ-9: Total score 19 07/09/24 16:47 Thrive Assessment: Date of Thrive Assessment Date Thrive assessed 07/09/24 07/09/24 16:47 Currently or been in a relationship where the following occur: No concerns reported Const General: No confusion Orientation/consciousness: No confusion HENMT Head: Yes normocephalic Ears: external ears normal and TM's normal bilaterally Face and sinus: Yes normal facial exam Mouth: moist mucous membranes Throat: Yes tonsils normal Eyes Conjunctivae: conjunctivae normal Pupils: Equal, round and reactive pupils present and Pupil accommodation reflex normal Direct Ophthalmoscopy: normal light reflex Neck Neck: No lymphadenopathy Thyroid: Thyroid normal Chest Chest palpation & inspection: normal inspection of the chest Resp Effort & Inspection: normal respiratory effort and no audible wheezes Auscultation: clear to auscultation bilaterally, no crackles, no wheezes and lung sounds not diminished Cardio Rate: regular rate Rhythm: regular rhythm Peripheral pulses: radial pulses present and dorsalis pedis present GI Palpation (GI): no masses Auscultation: normal bowel sounds and normoactive bowel sounds Rectal Exam - Female: deferred Skin General skin exam: no rashes or lesions noted Rashes: no rashes Neuro General: No confusion Cranial nerves: Yes Equal, round and reactive pupils present and Yes Normal hearing present Cognition (Neuro): normal cognition Gait exam (Neuro): Normal gait present Motor exam (neuro): 5/5 motor strength present throughout Deep tendon reflexes (DTR's): Right brachioradialis reflex intensity grade: 2+, Left brachioradialis reflex intensity grade: 2+, Right patellar reflex intensity grade: 2+ and Left patellar reflex intensity grade: 2+ Extrem General: No edema Assessment and Plan Assessment & Plan (1) Annual physical exam: Code(s): Z00.00 - Encounter for general adult medical examination without abnormal findings Plan: Patient is advised to eat healthy, keep well hydrated, keep active and have adequate sleep. (2) Obesity: Code(s): E66.9 - Obesity, unspecified Qualifiers: Obesity type: due to excess calories Obesity classification: adult class 3 (BMI >= 40) Serious obesity comorbidity presence: without serious comorbidity Body mass index: BMI 40.0-44.9 Qualified Code(s): E66.01 - Morbid (severe) obesity due to excess calories; Z68.41 - Body mass index [BMI]40.0-44.9, adult Plan: Diet and exercise (3) Asthma: Code(s): J45.909 - Unspecified asthma, uncomplicated Plan: Stop smoking! (4) Tobacco abuse: Comment: Vaping November 2022 Code(s): Z72.0 - Tobacco use Plan: Patient was advised strongly to stop smoking! (5) Generalized anxiety disorder: Code(s): F41.1 - Generalized anxiety disorder Plan: Continue with present medication as needed. (6) Bilateral knee pain: Code(s): M25.561 - Pain in right knee; M25.562 - Pain in left knee Orders: Orders XR knee LT 3V Today M25.561 - Pain in right knee, M25.562 - Pain in left knee XR knee RT 3V Today M25.561 - Pain in right knee, M25.562 - Pain in left knee Medications: New nabumetone 500 mg PO BID 30 tabs 0RF M25.561 - Pain in right knee, M25.562 - Pain in left knee Coding Level of Care Code Est Pt Prev Care 18-39y(92346) Diagnoses Annual physical exam Z00.00 Class 3 severe obesity due to excess calories without serious comorbidity with body mass index (BMI) of 40.0 to 44.9 in adult E66.01; Z68.41 Obesity type: due to excess calories Obesity classification: adult class 3 (BMI >= 40) Serious obesity comorbidity presence: without serious comorbidity Body mass index: BMI 40.0-44.9 Asthma J45.909 Tobacco abuse Z72.0 Generalized anxiety disorder F41.1 Bilateral knee pain M25.561; M25.562 Additional Codes JARRET-7 Assessment Billing - JARRET-7 Assessment Tool: JARRET-7 Assessment 41778 ([id number])
[2024-07-09 16:41] VITALS: BP 146/96; PULSE 75; O2SAT 98; BMI 33.1
[2024-07-09 17:18] VITALS: BP 130/80
== END 2024-07-09 16:59 | disposition home or self-care (01) ==
PROVIDERS: PCP Internal Medicine; Visit Provider Internal Medicine
DX: Z00.00 Encounter for general adult medical examination without abnormal findings (principal); E66.01 Morbid (severe) obesity due to excess calories; Z68.41 Body mass index [BMI] 40.0-44.9, adult; J45.909 Unspecified asthma, uncomplicated; Z72.0 Tobacco use; F41.1 Generalized anxiety disorder; M25.561 Pain in right knee; M25.562 Pain in left knee

== ENCOUNTER → 2024-07-09 16:03 | Outpatient (BNVA) | payer OTHER, SELFPAY | PROVIDERS: PCP Internal Medicine; Visit Provider Internal Medicine | DX: Z00.00 Encounter for general adult medical examination without abnormal findings (principal); E66.01 Morbid (severe) obesity due to excess calories; Z68.41 Body mass index [BMI] 40.0-44.9, adult; J45.909 Unspecified asthma, uncomplicated; F41.1 Generalized anxiety disorder; M25.561 Pain in right knee; M25.562 Pain in left knee; Z72.0 Tobacco use; Z71.6 Tobacco abuse counseling; Z71.3 Dietary counseling and surveillance | CPT/HCPCS: 96127; 99395 ==

== ENCOUNTER 2024-08-17 14:02 | Outpatient (AMB) | payer OTHER, SELFPAY ==
[2024-08-17 14:15] VITALS: BP 140/90; PULSE 77; O2SAT 99; BMI 33.0
--- NOTE | 2024-08-17 14:15 | MHC.PC.OV ---
Vital Signs 08/17/24 14:15 08/17/24 14:44 Height 5 ft Weight 169 lb BMI 33.0 BP 140/90 H 118/70 Blood Pressure Location Lt brachial Lt brachial Position Sitting Pulse 77 Pulse Source Pulse Oximeter Pulse Oximetry (%) 99 Oxygen Delivery Method Room Air Intake Visit Reasons: 3M Follow Up Allergies Penicillins [PCN] Allergy (Mild, Verified 06/04/24 08:21) HIVES penicillin V Allergy (Unknown, Verified 06/04/24 08:21) hives Tobacco use date assessed: 02/15/24 Dental Screening Dental Screen Date: 06/04/24 HPI 3M Follow Up HPI Details 29-year-old obese female smoker with a history of asthma generalized anxiety disorder and bilateral knee pain last seen for physical in July 09. R breast mass intermittent since 16 years old - 2 weeks ago this started [facility] Medical History (Updated 08/17/24 @ 14:42 by Isabel Lyman MD) Polysubstance abuse Tobacco abuse Obesity Migraine Bipolar disorder ADD (attention deficit disorder) Asthma Low back pain Surgical History History of cholecystectomy History of section Family History (Updated 07/09/24 @ 17:20 by Isabel Lyman MD) Father Medical history unknown Mother Hypothyroidism High cholesterol COPD (chronic obstructive pulmonary disease) Hypertension Family/Other FH: mental illness Maternal Grandmother Myocardial infarction Social History (Updated 07/09/24 @ 17:21 by Isabel Lyman MD) Housing: House Alcohol intake: never Patient Tobacco Use Status: Current everyday Tobacco user Tobacco use type: Cigarette Cigarettes Per Day: 5 Years Smoked: does weed e-Cigarette/Vaping Use: Never Used Second Hand Smoke Exposure: Yes service: No Current occupational status: employed Cognitive needs: No Hearing needs: No Vision needs: No Questionnaire Thrive Questionnaire Date Thrive assessed: 07/09/24 I am a: Patient What is your living situation today?: I choose not to answer this question THRIVE Score: 0 JARRET-7 AMB Questionnaire JARRET-7 Date JARRET - 7 assessed: 07/09/24 Source: Developed by Drs. Rocael Diaz, Beth Escalona, Moise Enciso and colleagues, with an educational lainey from [employer]. Physical exam (Primary Care) Vital Signs: Last Vital Signs Pulse 77 08/17/24 14:15 BP 118/70 08/17/24 14:44 Pulse Ox 99 08/17/24 14:15 Oxygen Delivery Method Room Air 08/17/24 14:15 BMI result Body Mass Index 33.0 Tobacco/Smoking Status: Tobacco use Status Tobacco use date assessed 02/15/24 08/17/24 14:19 Patient Tobacco Use Status Current everyday Tobacco 08/17/24 14:19 Tobacco use type Cigarette 08/17/24 14:19 e-Cigarette/Vaping Use Never Used 08/17/24 14:19 Thrive Assessment: Date of Thrive Assessment Date Thrive assessed 07/09/24 08/17/24 14:19 Const General: alert; No acute distress Eyes Conjunctivae: conjunctivae normal Chest Chest/axillae images: 1. 2 cm erythematous tender mass Resp Auscultation: clear to auscultation bilaterally Cardio Rate: regular rate Rhythm: regular rhythm GI Inspection: Yes normal to inspection Extrem General: Yes normal to inspection and No edema Office Procedures Flu Questionnaire Does the patient have a severe egg allergy?: No Immunizations Fluarix Triv [id number] (PF) 45 mcg (15 mcg x 3)/0.5 mL IM syringe Performing Provider: Isabel Lyman MD [place] [facility] [place] [facility] Documented (not given) by: EMILI Ventura on 08/17/24 14:21 Reason Not Given: Patient Refused Coding Level of Care Code Est Pt Level 4 (25950) Diagnoses Tobacco abuse Z72.0 Class 3 severe obesity due to excess calories without serious comorbidity with body mass index (BMI) of 40.0 to 44.9 in adult E66.01; Z68.41 Body mass index: BMI 40.0-44.9 Obesity classification: adult class 3 (BMI >= 40) Obesity type: due to excess calories Serious obesity comorbidity presence: without serious comorbidity Mild intermittent asthma without complication J45.20 Asthma complication type: uncomplicated Asthma persistence: intermittent Asthma severity: mild Generalized anxiety disorder F41.1 Acute pain of both knees M25.561; M25.562 Chronicity: acute Breast abscess N61.1 Assessment & Plan Assessment & Plan (1) Tobacco abuse: Comment: Vaping November 2022 Code(s): Z72.0 - Tobacco use Category: Medical Plan: Patient is strongly advised to stop smoking in vaping! (2) Obesity: Code(s): E66.9 - Obesity, unspecified Category: Medical Qualifiers: Body mass index: BMI 40.0-44.9 Obesity classification: adult class 3 (BMI >= 40) Obesity type: due to excess calories Serious obesity comorbidity presence: without serious comorbidity Qualified Code(s): E66.01 - Morbid (severe) obesity due to excess calories; Z68.41 - Body mass index [BMI]40.0-44.9, adult Plan: Diet and exercise (3) Asthma: Code(s): J45.909 - Unspecified asthma, uncomplicated Category: Medical Qualifiers: Asthma complication type: uncomplicated Asthma persistence: intermittent Asthma severity: mild Qualified Code(s): J45.20 - Mild intermittent asthma, uncomplicated Plan: Stable patient is advised to stop smoking (4) Generalized anxiety disorder: Code(s): F41.1 - Generalized anxiety disorder Category: Medical Plan: Continue with present medication (5) Bilateral knee pain: Code(s): M25.561 - Pain in right knee; M25.562 - Pain in left knee Category: Medical Qualifiers: Chronicity: acute Qualified Code(s): M25.561 - Pain in right knee; M25.562 - Pain in left knee Plan: X-ray has been requested (6) Breast abscess: Comment: R medial area [address] [place] [address] Code(s): N61.1 - Abscess of the breast and nipple Category: Medical Plan: Antibiotic prescription sent in and referral to the general surgeon Orders: Orders Influenza [id number] Immunization Today Z23 - Encounter for immunization Referrals General Surgery Referral N61.1 - Abscess of the breast and nipple Medications: New sulfamethoxazole-trimethoprim 800-160 mg (Bactrim DS) 1 tab PO BID 14 tabs 0RF N61.1 - Abscess of the breast and nipple nicotine 1 patch transdermal DAILY 28 ea 0RF Z72.0 - Tobacco use celecoxib (Celebrex) 200 mg PO DAILY 30 caps 1RF M25.561 - Pain in right knee, M25.562 - Pain in left knee nicotine 1 patch transdermal DAILY 28 ea 0RF Z72.0 - Tobacco use Refilled cyclobenzaprine 5 mg PO BID PRN 60 tabs 0RF muscle spasm E66.01 - Morbid (severe) obesity due to excess calories, Z68.41 - Body mass index [BMI] 40.0-44.9, adult Discontinued nabumetone Discontinued Reason: Change Referral Type 500 mg PO BID 30 tabs 0RF M25.561 - Pain in right knee, M25.562 - Pain in left knee
[2024-08-17 14:44] VITALS: BP 118/70
== END 2024-08-17 14:51 | disposition home or self-care (01) ==
PROVIDERS: PCP Internal Medicine; Visit Provider Internal Medicine
DX: Z72.0 Tobacco use (principal); E66.01 Morbid (severe) obesity due to excess calories; Z68.41 Body mass index [BMI] 40.0-44.9, adult; J45.20 Mild intermittent asthma, uncomplicated; F41.1 Generalized anxiety disorder; M25.561 Pain in right knee; M25.562 Pain in left knee; N61.1 Abscess of the breast and nipple; Z23 Encounter for immunization

== ENCOUNTER → 2024-08-17 14:02 | Outpatient (BNVA) | payer OTHER, SELFPAY | PROVIDERS: PCP Internal Medicine; Visit Provider Internal Medicine | DX: E66.01 Morbid (severe) obesity due to excess calories (principal); Z68.41 Body mass index [BMI] 40.0-44.9, adult; J45.20 Mild intermittent asthma, uncomplicated; F41.1 Generalized anxiety disorder; M25.561 Pain in right knee; M25.562 Pain in left knee; N61.1 Abscess of the breast and nipple; Z72.0 Tobacco use; Z71.3 Dietary counseling and surveillance; Z71.6 Tobacco abuse counseling | CPT/HCPCS: 90471; 99212 ==

== ENCOUNTER 2024-08-31 10:40 | Outpatient (AMB) | payer OTHER, SELFPAY ==
--- NOTE | 2024-08-31 10:41 | A.OFFVIS_ITS ---
Vital Signs 3 08/31/24 10:50 Height 4 ft 11 in Weight 168 lb 6 oz BMI 34.0 BP 140/86 H Blood Pressure Location Lt brachial Position Sitting Pulse 76 Intake Visit Reasons: abscess of the right breast and nipple Intake Note: Patient is seen in office for evaluation of an abscess of the right breast and nipple. Pt c/o: onset for many yrs, comes and goes, discharge with foul odor, had antbx finished last week, never been surgically removed Imaging: zero Supervisor Liquefaction Required: No Accompanied by: Self / Same As Patient Allergies Penicillins [PCN] Allergy (Mild, Verified 08/31/24 10:47) HIVES penicillin V Allergy (Unknown, Verified 08/31/24 10:47) hives HPI Comments Details: 29-year-old female patient presenting for evaluation of a previously infected cyst of the right breast. She reports her 1st episode of an infected cyst in this location was at the age of 16. She has had multiple previous episodes of infection and generally is able to drain the lesion with pressure. After recent infection she was started on oral antibiotics which improved the symptoms. Currently she continues to feel a palpable lump but denies any pain associated with the lesion. There is no further discharge at this time. She denies any previous breast surgery or other breast problems. She is 4 para 4 and breastfed her 2nd child for short period of time. Her family history is negative for breast cancer. She has never undergone mammogram or ultrasound. [facility] Medical History Polysubstance abuse Tobacco abuse Obesity Migraine Bipolar disorder ADD (attention deficit disorder) Asthma Low back pain Surgical History History of cholecystectomy History of section Family History Father Medical history unknown Mother Hypothyroidism High cholesterol COPD (chronic obstructive pulmonary disease) Hypertension Family/Other FH: mental illness Maternal Grandmother Myocardial infarction Social History Housing: House Alcohol intake: never Patient Tobacco Use Status: Current everyday Tobacco user Tobacco use type: Cigarette Cigarettes Per Day: 5 Years Smoked: does weed e-Cigarette/Vaping Use: Never Used Second Hand Smoke Exposure: Yes service: No Current occupational status: employed Cognitive needs: No Hearing needs: No Vision needs: No Review of Systems Const All systems reviewed & are unremarkable except as noted in HPI and below Denies chills, Denies fever(s), Denies headache(s), Denies poor appetite and Denies weakness ENT Denies headache(s) Card Denies chest pain, Denies irregular heart rhythm, Denies palpitations and Denies dyspnea Resp Denies cough, Denies excessive phlegm production and Denies dyspnea GI Denies abdominal pain, Denies bloating, Denies change in bowel habits, Denies constipation, Denies heartburn, Denies diarrhea, Denies nausea and Denies vomiting Denies urinary frequency and Denies nipple discharge Musc Denies back pain, Denies muscle weakness and Denies numbness Skin/Breast Reports furuncle, Reports breast swelling, Reports breast pain, Reports breast mass, Denies changing lesions, Denies nipple discharge and Denies unusual bruising Neuro Denies headache(s), Denies numbness, Denies paresthesias and Denies weakness Psych Denies anxiety and Denies depression Endo Denies palpitations Travis/Lymph Denies lymphadenopathy Physical Exam Const General: cooperative and no acute distress Nutritional Appearance: well nourished Orientation/consciousness: patient oriented x3 Limitations: no limitations HEENT Head: Yes normocephalic and Yes atraumatic Ears: hearing grossly normal bilaterally Chest Other: Left breast: No skin change, no nipple retraction, no nipple discharge, no palpable mass, no enlarged lymph nodes. Right breast: No skin change, no nipple retraction, no nipple discharge, palpable cutaneous cyst with overlying scar tissue consistent with prior infections measuring approximately 2 cm in diameter. No other palpable masses noted, no enlarged lymph nodes Chest/axillae images: 2 1. 2 cm epidermal inclusion cyst with evidence of prior infection upper inner quadrant adjacent to the sternal margin. Resp Effort & Inspection: normal respiratory effort, no audible wheezes, no cough and no respiratory distress Cardio Jugular venous distension: no JVD GI Inspection: Yes normal to inspection Skin Other: Warm, dry, no rash Neuro General: patient oriented x3 Extrem General: Yes no clubbing, cyanosis or edema Assessment & Plan Assessment & Plan (1) Breast abscess: Comment: R medial area 3oclcock Code(s): N61.1 - Abscess of the breast and nipple Category: Medical Plan 29-year-old female patient presenting with an infected epidermal inclusion cyst of the right breast with multiple previous infections, recently treated with oral antibiotics with good results. On examination there is a 2 cm firm area in the upper inner quadrant adjacent to the sternum with evidence of a prior infection but no active infection at this time. I recommended an excision of this epidermal inclusion cyst with recurring infections and after discussion of the procedure, risks, and alternatives, she consents to excision of the right breast cyst. This will be performed as a short-stay surgery at her earliest convenience. Coding Level of Care Code New Pt Level 4 (87729) Diagnoses Breast abscess N61.1
[2024-08-31 10:50] VITALS: BP 140/86; PULSE 76; BMI 34.0
== END 2024-08-31 11:03 | disposition home or self-care (01) ==
PROVIDERS: PCP Internal Medicine; Visit Provider Surgery
DX: N61.1 Abscess of the breast and nipple (principal)
CPT/HCPCS: 99204

== ENCOUNTER → 2024-08-31 10:40 | Outpatient (BNVA) | payer OTHER, SELFPAY | PROVIDERS: PCP Internal Medicine; Visit Provider Surgery | DX: N61.1 Abscess of the breast and nipple (principal) | CPT/HCPCS: 99202 ==

== ENCOUNTER 2025-02-14 14:09 | Outpatient (AMB) | payer OTHER, SELFPAY ==
--- NOTE | 2025-02-14 14:09 | A.OFFPC_ITS ---
Intake Visit Reasons: 3M Follow Up Rater Associate Required: No Information Interpreted: non-clinical & clinical Design Teacher: Not Required per policy Accompanied by: Self / Same As Patient Allergies Penicillins [PCN] Allergy (Mild, Verified 02/14/25 14:13) HIVES penicillin V Allergy (Unknown, Verified 02/14/25 14:13) hives Medication List - Last Reconciled 02/14/25 by Isabel Lyman MD cyclobenzaprine 5 mg PO BID PRN gabapentin 600 mg PO TID 90 days miscellaneous medical supply 1 ea miscellaneous DAILY 99 days sertraline 25 mg PO DAILY tramadol 50 mg PO Q6-8H PRN 30 days Tobacco use date assessed: 02/14/25 Dental Screening Dental Screen Date: 02/14/25 Did you have a dental visit in the last 12 months?: Yes Did you have a dental problem in the last 6 months where you did not have access to dental care?: No Was dental information given to patient?: Patient has dentist [facility] Medical History Polysubstance abuse Tobacco abuse Obesity Migraine Bipolar disorder ADD (attention deficit disorder) Asthma Low back pain Surgical History History of cholecystectomy History of section Family History Father Medical history unknown Mother Hypothyroidism High cholesterol COPD (chronic obstructive pulmonary disease) Hypertension Family/Other FH: mental illness Maternal Grandmother Myocardial infarction Social History (Updated 02/14/25 @ 14:13 by EMILI Ventura) Housing: House Alcohol intake: never Patient Tobacco Use Status: Former Tobacco user (6 months ago) Tobacco use type: Cigarette Cigarettes Per Day: 5 Years Smoked: does weed Packs per year/per ci.00 e-Cigarette/Vaping Use: Never Used Second Hand Smoke Exposure: Yes Substance Use Type: Marijuana Substance Use Frequency: Occasionally service: No Current occupational status: employed Cognitive needs: No Hearing needs: No Vision needs: No Questionnaire PHQ-9 Over the last 2 weeks, how often have you been bothered by any of the following problems? 1. Little interest or pleasure in doing things: not at all 2. Feeling down, depressed, or hopeless: not at all 3. Trouble falling or staying asleep, or sleeping too much: not at all 4. Feeling tired or having little energy: not at all 5. Poor appetite or overeating: not at all 6. Feeling bad about yourself - or that you are a failure or have let yourself or your family down: not at all 7. Trouble concentrating on things, such as reading the newspaper or watching television: not at all 8. Moving or speaking so slowly that other people could have noticed. Or the opposite - being so fidgety or restless that you have been moving around a lot more than usual: not at all 9. Thoughts that you would be better off or of hurting yourself in some way: not at all Total score: 0 Depression Screening Interpretation: Negative Depression Screening Done: Yes 74861 - PHQ-9 Billing: Yes Source: Developed by Drs. Rocael Diaz, Beth Escalona, Moise Enciso and colleagues, with an educational lainey from [employer]. Thrive Questionnaire Date Thrive assessed: 02/14/25 I am a: Patient What is your living situation today?: I have a steady place to live Within the past 12 months, did the food you bought not last and you didn't have the money to get more?: Never true Within the past 12 months, did you worry whether your food would run out before you got money to buy more?: Never true Do you have trouble paying for medicines?: No Do you have trouble getting transportation to medical appointments?: No Do you have trouble paying your heating and electricity bill?: No Do you have trouble taking care of your child, family member or friend?: No Do you have trouble with day-to-day activities such as bathing, preparing meals, shopping, managing finances, etc.?: No Are you currently unemployed and looking for a job?: No Are you interested in more education?: No Please select the resources that you would like help with: None Currently or been in a relationship where the following occur: No concerns reported THRIVE Score: 0 AUDIT C Alcohol Use Questionnaire (AUDIT-C) 1. How often do you have a drink containing alcohol?: Never 3. How often do you have six or more drinks on one occasion?: Never Total Score: 0 JARRET-7 AMB Questionnaire JARRET-7 Date JARRET - 7 assessed: 02/14/25 Feeling nervous, anxious, or on edge: 0 = Not at all Not being able to stop or control worryin = Not at all Worrying too much about different things: 0 = Not at all Trouble relaxin = Not at all Being so restless that it is hard to sit still: 0 = Not at all Becoming easily annoyed or irritable: 0 = Not at all Feeling afraid as if something awful might happen: 0 = Not at all Total JARRET-7 score (0-4 normal; 5-9 mild; 10-14 moderate; 15-21 severe): 0 Source: Developed by Drs. Rocael Diaz, Beth Escalona, Moise Enciso and colleagues, with an educational lainey from [employer]. JARRET-7 Assessment Billing JARRET-7 Assessment Tool: JARRET-7 Assessment 00820 Physical exam (Primary Care) Tobacco/Smoking Status: Tobacco use Status Tobacco use date assessed 02/14/25 02/14/25 14:15 Patient Tobacco Use Status Former Tobacco user (6 02/14/25 14:15 months ago) Tobacco use type Cigarette 02/14/25 14:13 e-Cigarette/Vaping Use Never Used 02/14/25 14:13 PHQ-9: PHQ-9 Score PHQ-9: Total score 0 02/14/25 14:15 Depression Screening Interpretation: Negative Thrive Assessment: Date of Thrive Assessment Date Thrive assessed 02/14/25 02/14/25 14:11 Currently or been in a relationship where the following occur: No concerns reported Telehealth Telehealth Telehealth Platform: [facility] Location of provider rendering services: practice address Location of patient: address on file Patient Identification confirmed using: Name, : Yes Telehealth method: video Patient verbally consented to treatment: Yes Patient verbally consented to billing insurance company: Yes Patient informed of any privacy concerns related to visit: Yes Minutes spent on Phone/Video with Pt.: 25 Coding Level of Care Code Tele Est Pt Level 4 (67207) Diagnoses Breast abscess N61.1 Ankle pain, right M25.571 Tobacco abuse Z72.0 Generalized anxiety disorder F41.1 Acute pain of both knees M25.561; M25.562 Chronicity: acute Low back pain M54.5 Additional Codes JARRET-7 Assessment Billing - JARRET-7 Assessment Tool: JARRET-7 Assessment 65460 ([id number]) PHQ-9 - 49826 - PHQ-9 Billing: Yes ([id number]) Assessment & Plan Assessment & Plan (1) Breast abscess: Comment: R medial area 3oclcock Code(s): N61.1 - Abscess of the breast and nipple Category: Medical Plan: Patient states resolved (2) Ankle pain, right: Code(s): M25.571 - Pain in right ankle and joints of right foot Category: Medical Plan: Resolved (3) Tobacco abuse: Comment: Vaping November 2022 Code(s): Z72.0 - Tobacco use Category: Medical Plan: Patient is still vaping. Discussed about stopping it (4) Generalized anxiety disorder: Code(s): F41.1 - Generalized anxiety disorder Category: Medical Plan: Patient declined any referral for counseling and would like the medication increase for dose. (5) Bilateral knee pain: Code(s): M25.561 - Pain in right knee; M25.562 - Pain in left knee Category: Medical Qualifiers: Chronicity: acute Qualified Code(s): M25.561 - Pain in right knee; M25.562 - Pain in left knee Plan: Celebrex is stopped and nabumetone prescribed discussed concern about stomach problems and kidney problems. (6) Low back pain: Comment: MRI January 2019 small annulus tear lumbar, x-ray 2018 mild degenerative lumbar disc with anterolisthesis 2 mm Code(s): M54.5 - Low back pain Category: Medical Plan: Patient continues to follow-up with pain management from [facility] but discussed with the patient that I have not received any more recent notes. Advised to call them and send me the notes Plan History of Present Illness The patient is a 29-year-old female presenting with chronic pain management needs. She reports long-standing pain in the tailbone area, significantly affecting her capacity to sit for extended periods. The pain is described as similar to severe muscle cramps and intensifies, particularly in the morning. The patient has a history of a right ankle sprain in September 2024, initially due to a minor tendon fracture but has largely recovered. The patient was also treated for a right breast abscess last year without surgical intervention, and the condition improved. Chronic conditions include asthma and an anxiety disorder, managed with sertraline, which the patient feels requires dosage adjustment. The patient is actively dealing with nicotine dependence, now using vaping following an allergic reaction to nicotine patches. Her chronic pain management previously relied on Celebrex, though she has discontinued its use due to lack of efficacy, transitioning to bumetone for pain relief. Review of Systems - Chest: Denies current respiratory issues related to asthma. - Musculoskeletal: Reports right ankle previously fractured, chronic severe pain in the tailbone area, unable to sit for extended periods. - Neurological: Reports ongoing anxiety disorder. - Psychiatric: Reports current use of sertraline 25 mg, desire for dosage adjustment. - Gastrointestinal: Denies issues aside from discussion during medication evaluation. - Skin/Breasts: Reports past breast abscess that resolved without surgical intervention. - Social: Reports current nicotine vaping, previous allergy to nicotine patches. Plan The patient's chronic tailbone pain necessitates transition from Celebrex to bumetone due to prior ineffectiveness. I recommended she take bumetone with food. To address asthma, current management appears satisfactory. We discussed increasing sertraline dosage from 25 mg to 50 mg for improved anxiety disorder control. Her nicotine dependence involves vaping currently, after patch-related allergies. Concurrently, evaluate the efficacy of gabapentin for chronic pain. Regular blood work, including renal function and electrolytes, is advised due to her pain complaints and water consumption pattern. Patient was informed and verbally consented to the use of an ambient scribe for clinic note documentation during this visit. Discussion Notes During this consultation, we outlined a comprehensive strategy for managing the patient's multifactorial chronic health issues. I emphasized the need to modify her pain management from Celebrex to bumetone due to inefficacy and potential gastrointestinal risks without adequate food intake. Given her reported insufficient control of anxiety symptoms, we agreed on doubling her sertraline dose. Discussion on her asthma management affirmed its stability, though monitoring her response remains essential. We also addressed nicotine dependency, acknowledging the transition to vaping. I proposed basic blood work to monitor her renal function and overall electrolyte balance considering her water intake. Treatment decisions were made collaboratively, focusing on patient safety and efficacy considerations. Patient Instructions - Take bumetone with food to minimize stomach upset. - Increase sertraline dose to 50 mg to help with anxiety. - Continue monitoring your response to gabapentin. - Stay hydrated, aiming for your current water intake level. - Schedule basic blood work for kidney function and electrolytes. - Avoid using Celebrex now that bumetone is prescribed. - Call us or consult immediately if you notice any worsening symptoms or new issues. Orders: Orders Magnesium Today Z72.0 - Tobacco use Medications: Changed From sertraline 25 mg PO DAILY 90 tabs 1RF F41.1 - Generalized anxiety disorder To sertraline 50 mg PO DAILY 30 tabs 1RF F41.1 - Generalized anxiety disorder Refilled nabumetone 500 mg PO BID 60 tabs 0RF M25.561 - Pain in right knee, M25.562 - Pain in left knee
== END 2025-02-14 17:16 | disposition home or self-care (01) ==
LOC: HO.HMCH 14:09
PROVIDERS: PCP Internal Medicine; Visit Provider Internal Medicine
DX: M25.571 Pain in right ankle and joints of right foot (principal); N61.1 Abscess of the breast and nipple; Z72.0 Tobacco use; F41.1 Generalized anxiety disorder; M25.561 Pain in right knee; M25.562 Pain in left knee; M54.50 Low back pain, unspecified

== ENCOUNTER → 2025-02-14 14:09 | Outpatient (BNVA) | payer OTHER, SELFPAY | PROVIDERS: PCP Internal Medicine; Visit Provider Internal Medicine | DX: N61.1 Abscess of the breast and nipple (principal); M25.571 Pain in right ankle and joints of right foot; F41.1 Generalized anxiety disorder; M25.561 Pain in right knee; M25.562 Pain in left knee; M54.50 Low back pain, unspecified; Z72.0 Tobacco use; Z79.899 Other long term (current) drug therapy | CPT/HCPCS: 96127 ==

== ENCOUNTER 2025-08-09 10:36 | Outpatient (AMB) | payer OTHER, SELFPAY ==
--- NOTE | 2025-08-09 10:44 | A.OFFPC_ITS ---
Vital Signs 08/09/25 10:46 08/09/25 11:11 Height 4 ft 11 in Weight 175 lb 2 oz BMI 35.4 BP 148/66 H 138/80 Blood Pressure Location Lt brachial Lt brachial Position Sitting Sitting Pulse 74 Pulse Source Pulse Oximeter Temp 97.3 F Temp Source Temporal Artery Scan Pulse Oximetry (%) 99 Oxygen Delivery Method Room Air Intake Visit Reasons: 3 month f/u Intake Note: Patient is here to follow up on LDDD, Asthma. 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 Required: No Cemetery Warden: Not Required per policy Accompanied by: Self / Same As Patient Allergies Penicillins (PCN) Allergy (Mild, Verified 08/09/25 10:46) HIVES penicillin V Allergy (Unknown, Verified 08/09/25 10:46) hives Tobacco use date assessed: 08/09/25 Dental Screening Dental Screen Date: 02/14/25 [facility] Medical History Polysubstance abuse Tobacco abuse Obesity Migraine Bipolar disorder ADD (attention deficit disorder) Asthma Low back pain Surgical History History of cholecystectomy History of section Family History Father Medical history unknown Mother Hypothyroidism High cholesterol COPD (chronic obstructive pulmonary disease) Hypertension Family/Other FH: mental illness Maternal Grandmother Myocardial infarction Social History Housing: House Alcohol intake: never Patient Tobacco Use Status: Former Tobacco user (6 months ago) Tobacco use type: Cigarette Cigarettes Per Day: 5 Years Smoked: does weed e-Cigarette/Vaping Use: Never Used Second Hand Smoke Exposure: Yes Substance Use Type: Marijuana service: No Current occupational status: employed Cognitive needs: No Hearing needs: No Vision needs: No Questionnaire PHQ-9 Over the last 2 weeks, how often have you been bothered by any of the following problems? 1. Little interest or pleasure in doing things: several days 2. Feeling down, depressed, or hopeless: several days 3. Trouble falling or staying asleep, or sleeping too much: several days 4. Feeling tired or having little energy: several days 5. Poor appetite or overeating: several days 6. Feeling bad about yourself - or that you are a failure or have let yourself or your family down: several days 7. Trouble concentrating on things, such as reading the newspaper or watching television: several days 8. Moving or speaking so slowly that other people could have noticed. Or the opposite - being so fidgety or restless that you have been moving around a lot more than usual: several days 9. Thoughts that you would be better off or of hurting yourself in some way: not at all Total score: 8 Source: Developed by Drs. Rocael Diaz, Beth Escalona, Moise Enciso and colleagues, with an educational lainey from [employer]. Thrive Questionnaire Date Thrive assessed: 02/14/25 I am a: Patient What is your living situation today?: I have a steady place to live Within the past 12 months, did the food you bought not last and you didn't have the money to get more?: I choose not to answer this question Within the past 12 months, did you worry whether your food would run out before you got money to buy more?: I choose not to answer this question Do you have trouble paying for medicines?: I choose not to answer this question Do you have trouble getting transportation to medical appointments?: No Do you have trouble paying your heating and electricity bill?: Yes Do you have trouble taking care of your child, family member or friend?: No Do you have trouble with day-to-day activities such as bathing, preparing meals, shopping, managing finances, etc.?: Yes Are you currently unemployed and looking for a job?: No Are you interested in more education?: No Please select the resources that you would like help with: None Currently or been in a relationship where the following occur: I choose not to answer THRIVE Score: 1 AUDIT C Alcohol Use Questionnaire (AUDIT-C) 1. How often do you have a drink containing alcohol?: Never Total Score: 0 JARRET-7 AMB Questionnaire JARRET-7 Date JARRET - 7 assessed: 02/14/25 Feeling nervous, anxious, or on edge: 0 = Not at all Not being able to stop or control worryin = Not at all Worrying too much about different things: 0 = Not at all Trouble relaxin = Not at all Being so restless that it is hard to sit still: 0 = Not at all Becoming easily annoyed or irritable: 0 = Not at all Feeling afraid as if something awful might happen: 0 = Not at all Total JARRET-7 score (0-4 normal; 5-9 mild; 10-14 moderate; 15-21 severe): 0 Source: Developed by Drs. Rocael Diaz, Beth Escalona, Moise Enciso and colleagues, with an educational lainey from [employer]. Physical exam (Primary Care) Vital Signs: Last Vital Signs Temp 97.3 F 08/09/25 10:46 Pulse 74 08/09/25 10:46 BP 138/80 08/09/25 11:11 Pulse Ox 99 08/09/25 10:46 Oxygen Delivery Method Room Air 08/09/25 10:46 BMI result Body Mass Index 35.4 Tobacco/Smoking Status: Tobacco use Status Tobacco use date assessed 08/09/25 08/09/25 10:51 Patient Tobacco Use Status Former Tobacco user (6 08/09/25 10:51 months ago) Tobacco use type Cigarette 08/09/25 10:51 e-Cigarette/Vaping Use Never Used 08/09/25 10:51 PHQ-9: PHQ-9 Score PHQ-9: Total score 8 08/09/25 11:11 Thrive Assessment: Date of Thrive Assessment Date Thrive assessed 02/14/25 08/09/25 10:51 Currently or been in a relationship where the following occur: I choose not to answer Const General: alert; No acute distress Eyes Conjunctivae: conjunctivae normal Resp Auscultation: clear to auscultation bilaterally Cardio Rate: regular rate Rhythm: regular rhythm GI Inspection: Yes normal to inspection Extrem General: Yes normal to inspection and No edema Coding Level of Care Code Est Pt Level 4 (01595) Complex EM visit Add On G2211 Diagnoses Generalized anxiety disorder F41.1 Class 3 severe obesity due to excess calories without serious comorbidity with body mass index (BMI) of 40.0 to 44.9 in adult E66.01; Z68.41 Body mass index: BMI 40.0-44.9 Obesity classification: adult class 3 (BMI >= 40) Obesity type: due to excess calories Serious obesity comorbidity presence: without serious comorbidity Low back pain M54.5 Mild intermittent asthma without complication J45.20 Asthma complication type: uncomplicated Asthma persistence: intermittent Asthma severity: mild Tobacco abuse Z72.0 Assessment & Plan Assessment & Plan (1) Generalized anxiety disorder: Code(s): F41.1 - Generalized anxiety disorder Category: Medical Plan: Continue with present medication (2) Obesity: Code(s): E66.9 - Obesity, unspecified Category: Medical Qualifiers: Body mass index: BMI 40.0-44.9 Obesity classification: adult class 3 (BMI >= 40) Obesity type: due to excess calories Serious obesity comorbidity presence: without serious comorbidity Qualified Code(s): E66.01 - Morbid (severe) obesity due to excess calories; Z68.41 - Body mass index [BMI]40.0- 44.9, adult Plan: Diet and exercise (3) Low back pain: Comment: MRI January 2019 small annulus tear lumbar, x-ray 2018 mild degenerative lumbar disc with anterolisthesis 2 mm Code(s): M54.5 - Low back pain Category: Medical Plan: Continue to be active on nabumetone p.r.n. and tramadol for pain (4) Asthma: Code(s): J45.909 - Unspecified asthma, uncomplicated Category: Medical Qualifiers: Asthma complication type: uncomplicated Asthma persistence: intermittent Asthma severity: mild Qualified Code(s): J45.20 - Mild intermittent asthma, uncomplicated Plan: Stable (5) Tobacco abuse: Comment: Vaping November 2022 Code(s): Z72.0 - Tobacco use Category: Medical Plan: Patient is strongly advised to stop Plan History of Present Illness The patient is a 30-year-old female presenting with obesity and associated weight gain. The patient has a history of asthma, which has been managed with medication. She also has generalized anxiety disorder, for which she has recently had an increase in her sertraline dosage. The patient reports left leg pain and lower back pain, for which she has sought consultation but has not received a definitive diagnosis. She has been using tramadol for pain management. Health Maintenance Social History - Smoking history: Patient has a history of smoking. Review of Systems - General: Reports weight gain of 7 pounds. - Musculoskeletal: Reports left leg pain and lower back pain. Physical Exam Results Plan Patient was informed and verbally consented to the use of an ambient scribe for clinic note documentation during this visit. 1. Obesity The patient is advised to continue with diet and exercise to manage her weight. 2. Asthma The patient's asthma is stable with current medication management. 3. Generalized Anxiety Disorder The patient has had an increase in sertraline dosage to manage anxiety symptoms. 4. Left Leg Pain The patient is using tramadol for pain management and has been advised to follow up with further diagnostic evaluation if symptoms persist. 5. Lower Back Pain The patient is using tramadol for pain management and has been advised to follow up with further diagnostic evaluation if symptoms persist. Discussion Notes Patient Instructions - Continue current medications as prescribed. - Maintain a healthy diet and regular exercise routine. - Follow up with further diagnostic evaluation if pain persists. Medications: Changed From tramadol 50 mg PO Q6-8H 15 days PRN 60 tabs 0RF pain M54.5 - Low back pain To tramadol 50 mg PO Q6-8H PRN 120 tabs 0RF pain 30 days M54.5 - Low back pain
[2025-08-09 10:46] VITALS: BP 148/66; PULSE 74; TEMP 36.3; O2SAT 99; BMI 35.4
[2025-08-09 11:11] VITALS: BP 138/80
== END 2025-08-09 11:20 | disposition home or self-care (01) ==
PROVIDERS: PCP Internal Medicine; Visit Provider Internal Medicine
DX: F41.1 Generalized anxiety disorder (principal); E66.01 Morbid (severe) obesity due to excess calories; Z68.41 Body mass index [BMI] 40.0-44.9, adult; M54.50 Low back pain, unspecified; J45.20 Mild intermittent asthma, uncomplicated; Z72.0 Tobacco use

== ENCOUNTER → 2025-08-09 10:36 | Outpatient (BNVA) | payer OTHER, SELFPAY | PROVIDERS: PCP Internal Medicine; Visit Provider Internal Medicine | DX: F41.1 Generalized anxiety disorder (principal); E66.01 Morbid (severe) obesity due to excess calories; M54.50 Low back pain, unspecified; J45.20 Mild intermittent asthma, uncomplicated; M79.605 Pain in left leg; Z87.891 Personal history of nicotine dependence; Z68.35 Body mass index [BMI] 35.0-35.9, adult | CPT/HCPCS: 99212 ==

== ENCOUNTER 2025-08-22 15:23 | Outpatient (REF) | payer OTHER, SELFPAY ==
--- NOTE | ~2025-08-22 | XR_ITS ---
EXAMINATION: XR CERVICAL SPINE CLINICAL INFORMATION: M54.2 - Cervicalgia COMPARISON: None available. TECHNIQUE: AP, lateral and atlantoodontoid views. FINDINGS: Craniocervical junction is intact. Mild reverse curvature apex at C4-5. No acute cortical disruption or listhesis. No lytic or blastic lesions. Upper airway is patent. XR/XR lumbar spine 2-3V IMPRESSION: Mild reverse curvature apex at C4-5. EXAMINATION: XR LUMBOSACRAL SPINE WITH OBLIQUES CLINICAL INFORMATION: M54.5 -low back pain. COMPARISON: October 26, 2018 TECHNIQUE: AP and lateral views FINDINGS: Grade 1 anterolisthesis, L5-S1 secondary to spondylolysis pars interarticulares. No acute cortical disruption. No lytic or blastic lesions. Sclerosis and the sacroiliac joints, right greater left. Vascular clips right upper quadrant abdomen and likely prior cholecystectomy. Rudimentary ribs, T12. 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 Electronically signed by: Juan Francisco Muller MD 08/23/2025 06:58 AM EDT
--- NOTE | ~2025-08-22 | XR_ITS ---
EXAMINATION: XR CERVICAL SPINE CLINICAL INFORMATION: M54.2 - Cervicalgia COMPARISON: None available. TECHNIQUE: AP, lateral and atlantoodontoid views. FINDINGS: Craniocervical junction is intact. Mild reverse curvature apex at C4-5. No acute cortical disruption or listhesis. No lytic or blastic lesions. Upper airway is patent. XR/XR cervical spine 3V IMPRESSION: Mild reverse curvature apex at C4-5. EXAMINATION: XR LUMBOSACRAL SPINE WITH OBLIQUES CLINICAL INFORMATION: M54.5 -low back pain. COMPARISON: October 26, 2018 TECHNIQUE: AP and lateral views FINDINGS: Grade 1 anterolisthesis, L5-S1 secondary to spondylolysis pars interarticulares. No acute cortical disruption. No lytic or blastic lesions. Sclerosis and the sacroiliac joints, right greater left. Vascular clips right upper quadrant abdomen and likely prior cholecystectomy. Rudimentary ribs, T12. 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 Electronically signed by: Juan Francisco Muller MD 08/23/2025 06:58 AM EDT
== END 2025-08-22 15:24 | disposition home or self-care (01) ==
LOC: HO.XRAY 15:23
PROVIDERS: PCP Internal Medicine; Visit Provider Internal Medicine
DX: M54.2 Cervicalgia (principal); M54.50 Low back pain, unspecified; F41.1 Generalized anxiety disorder; J45.20 Mild intermittent asthma, uncomplicated; W19.XXXA Unspecified fall, initial encounter; Z79.899 Other long term (current) drug therapy
CPT/HCPCS: 72040; 72100; 99212

== ENCOUNTER 2025-08-22 15:23 | Outpatient (AMB) | payer OTHER, SELFPAY ==
--- OUTSIDE RECORDS SUMMARY | 2024-11-06 12:17 | XMS_ITS | Encounter Summary ---
Author Organization [facility] Address [address] [facility] [address] [place] [phone] Phone Care Team Providers Care Intermediate Frame Tender Name Role Phone Isabel Lyman MD Primary Care Provider [phone] Encounter Details Date Type Department Care Team (Late st Contact Info) Description 11/06/2024 11:17 AM EST Hospital Encounter [facility] [address] [place] [id number] Sharmila Neville FNP [address] [place] [id number] [email or web address] Social History Tobacco Use Types Packs/Day Years Used Date Smoking Tobacco: Former Cigarettes Smokeless Tobacco: Never Education Answer Date Recorded Are you interested in more education? Not on lisa e 11/06/2024 Are you concerned about learning? Not on file 11/06/2024 No 11/06/2024 No 11/06/2024 Digital Access Answer Date Recorded No 11/06/2024 No 11/06/2024 Reliable internet access at home? Not on file 11/06/2024 Device with a working camera? Not on file Comments Unknown Sex and Gender Information Value Date Recorded Sex Assigned at Not on file Legal Sex Female 10:20 AM EST Gender Identity Not on file Sexual Orientation Not on file documented as of this encounter Plan of Treatment Not on file documented as of this encounter Procedures Procedure Name Priority Date/Time Associated Diagnosis Comments XR ELBOW 3 OR MORE VIEWS (RIGHT) Urgent/patient waiting 11/06/2024 11:23 AM EST Fall, initial encounter documented in this encounter Results * XR ELBOW 3 OR MORE VIEWS (RIGHT) (11/06/2024 11:23 AM EST) Anatomical Region Laterality Modality Elbow Right Computed Radiogr aphy 11/06/2024 11:3 9 AM EST Impressions 11/06/2024 11:40 AM EST No fracture or dislocation. Narrative 11/06/2024 11:40 AM EST XR ELBOW 3 OR MORE VIEWS (RIGHT) Referring clinician's provided indication for this examination in [facility]: S/P Fall; fell in tub 4 days ago. pain and bruising. pain medial epicondyle COMPARISON: None FINDINGS: No fracture. Normal alignment. Normal joint spaces. No effusion. No soft tissue swelling. Procedure Note Leslie Garg MD - 11/06/2024 XR ELBOW 3 OR MORE VIEWS (RIGHT) Referring clinician's provided indication for this examination in [facility]:S/P Fall; fell in tub 4 days ago. pain and bruising. pain medialepicondyle COMPARISON: None FINDINGS: No fracture. Normal alignment. Normal joint spaces. No effusion. No softtissue swelling. IMPRESSION: No fracture or dislocation. 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 It is not the complete legal health record.[facility]
[2025-08-22 15:25] VITALS: BP 134/90; PULSE 70; TEMP 36.6; O2SAT 98; BMI 35.3
--- NOTE | 2025-08-22 15:25 | MHC.PC.OV ---
Vital Signs 08/22/25 15:25 Height 4 ft 11 in Weight 175 lb BMI 35.3 BP 134/90 H Blood Pressure Location Lt brachial Position Sitting Pulse 70 Pulse Source Pulse Oximeter Temp 97.8 F Temp Source Temporal Artery Scan Pulse Oximetry (%) 98 Oxygen Delivery Method Room Air Intake Visit Reasons: Patient had a fall, having headaches Allergies Penicillins (PCN) Allergy (Mild, Verified 08/22/25 15:29) HIVES penicillin V Allergy (Unknown, Verified 08/22/25 15:29) hives nicotine patch Allergy (Intermediate, Uncoded 08/22/25 15:29) Itching Medication List - Last Reconciled 08/22/25 by Isabel Lyman MD cyclobenzaprine 5 mg PO BID PRN gabapentin 600 mg PO TID 90 days lidocaine 5% 2 patches topical DAILY miscellaneous medical supply 1 ea miscellaneous DAILY 99 days nabumetone 500 mg PO BID sertraline 50 mg PO DAILY tramadol 50 mg PO Q6-8H PRN 30 days Tobacco use date assessed: 08/22/25 Dental Screening Dental Screen Date: 08/22/25 Did you have a dental visit in the last 12 months?: Yes Did you have a dental problem in the last 6 months where you did not have access to dental care?: No Was dental information given to patient?: Patient has dentist HPI Patient had a fall, having headaches HPI Details Fall 4 days ago flight of stairs and state complains of neck pain PFSH Medical History (Updated 08/22/25 @ 15:40 by Isabel Lyman MD) Polysubstance abuse Tobacco abuse Obesity Migraine Bipolar disorder ADD (attention deficit disorder) Asthma Low back pain Surgical History History of cholecystectomy History of section Family History Father Medical history unknown Mother Hypothyroidism High cholesterol COPD (chronic obstructive pulmonary disease) Hypertension Family/Other FH: mental illness Maternal Grandmother Myocardial infarction Social History Housing: House Alcohol intake: never Patient Tobacco Use Status: Former Tobacco user (6 months ago) Tobacco use type: Cigarette Cigarettes Per Day: 5 Years Smoked: does weed e-Cigarette/Vaping Use: Never Used Second Hand Smoke Exposure: Yes Substance Use Type: Marijuana service: No Current occupational status: employed Cognitive needs: No Hearing needs: No Vision needs: No Questionnaire PHQ-9 Over the last 2 weeks, how often have you been bothered by any of the following problems? 1. Little interest or pleasure in doing things: several days 2. Feeling down, depressed, or hopeless: several days 3. Trouble falling or staying asleep, or sleeping too much: several days 4. Feeling tired or having little energy: several days 5. Poor appetite or overeating: several days 6. Feeling bad about yourself - or that you are a failure or have let yourself or your family down: several days 7. Trouble concentrating on things, such as reading the newspaper or watching television: several days 8. Moving or speaking so slowly that other people could have noticed. Or the opposite - being so fidgety or restless that you have been moving around a lot more than usual: several days 9. Thoughts that you would be better off or of hurting yourself in some way: not at all Total score: 8 Source: Developed by Drs. Rocael Diaz, Beth Escalona, Moise Enciso and colleagues, with an educational lainey from [employer]. Thrive Questionnaire Date Thrive assessed: 08/09/25 I am a: Patient What is your living situation today?: I have a steady place to live Within the past 12 months, did the food you bought not last and you didn't have the money to get more?: I choose not to answer this question Within the past 12 months, did you worry whether your food would run out before you got money to buy more?: I choose not to answer this question Do you have trouble paying for medicines?: I choose not to answer this question Do you have trouble getting transportation to medical appointments?: No Do you have trouble paying your heating and electricity bill?: Yes Do you have trouble taking care of your child, family member or friend?: No Do you have trouble with day-to-day activities such as bathing, preparing meals, shopping, managing finances, etc.?: Yes Are you currently unemployed and looking for a job?: No Are you interested in more education?: No Please select the resources that you would like help with: None Currently or been in a relationship where the following occur: I choose not to answer THRIVE Score: 1 AUDIT C Alcohol Use Questionnaire (AUDIT-C) 1. How often do you have a drink containing alcohol?: Never 3. How often do you have six or more drinks on one occasion?: Never Total Score: 0 JARRET-7 AMB Questionnaire JARRET-7 Date JARRET - 7 assessed: 02/14/25 Feeling nervous, anxious, or on edge: 0 = Not at all Not being able to stop or control worryin = Not at all Worrying too much about different things: 0 = Not at all Trouble relaxin = Not at all Being so restless that it is hard to sit still: 0 = Not at all Becoming easily annoyed or irritable: 0 = Not at all Feeling afraid as if something awful might happen: 0 = Not at all Total JARRET-7 score (0-4 normal; 5-9 mild; 10-14 moderate; 15-21 severe): 0 Source: Developed by Drs. Rocael Diaz, Beth Escalona, Moise Enciso and colleagues, with an educational lainey from [employer]. Physical exam (Primary Care) Vital Signs: Last Vital Signs Temp 97.8 F 08/22/25 15:25 Pulse 70 08/22/25 15:25 BP 134/90 H 08/22/25 15:25 Pulse Ox 98 08/22/25 15:25 Oxygen Delivery Method Room Air 08/22/25 15:25 BMI result Body Mass Index 35.3 Tobacco/Smoking Status: Tobacco use Status Tobacco use date assessed 08/22/25 08/22/25 15:30 Patient Tobacco Use Status Former Tobacco user (6 08/22/25 15:30 months ago) Tobacco use type Cigarette 08/22/25 15:30 e-Cigarette/Vaping Use Never Used 08/22/25 15:30 PHQ-9: PHQ-9 Score PHQ-9: Total score 8 08/22/25 15:30 Thrive Assessment: Date of Thrive Assessment Date Thrive assessed 08/09/25 08/22/25 15:30 Currently or been in a relationship where the following occur: I choose not to answer Const Other: Patient walks with no limp points to me on the neck is having pain slowly can move the chin to the chest but states pain on the cervical area no redness no swelling neurologically intact moves arms shoulders equally can lift both legs equally can move toes up equally/dorsiflex General: alert; No acute distress Eyes Conjunctivae: conjunctivae normal Resp Auscultation: clear to auscultation bilaterally Cardio Rate: regular rate Rhythm: regular rhythm GI Inspection: Yes normal to inspection Extrem General: Yes normal to inspection and No edema Coding Level of Care Code Est Pt Level 4 (72710) Complex EM visit Add On G2211 Diagnoses Low back pain M54.5 Generalized anxiety disorder F41.1 Mild intermittent asthma without complication J45.20 Asthma severity: mild Asthma persistence: intermittent Asthma complication type: uncomplicated Fall W19.XXXA Neck pain M54.2 Assessment & Plan Assessment & Plan (1) Low back pain: Comment: MRI January 2019 small annulus tear lumbar, x-ray 2018 mild degenerative lumbar disc with anterolisthesis 2 mm fall 08/19/2025 again Code(s): M54.5 - Low back pain Category: Medical Plan: Patient on tramadol and muscle relaxant for pain as well as anti-inflammatories. Advised to keep active and do exercise (2) Generalized anxiety disorder: Code(s): F41.1 - Generalized anxiety disorder Category: Medical Plan: On sertraline 50 mg once a day (3) Asthma: Code(s): J45.909 - Unspecified asthma, uncomplicated Category: Medical Qualifiers: Asthma severity: mild Asthma persistence: intermittent Asthma complication type: uncomplicated Qualified Code(s): J45.20 - Mild intermittent asthma, uncomplicated Plan: Stable (4) Fall: Comment: 08/19/2025 Code(s): W19.XXXA - Unspecified fall, initial encounter Category: Medical (5) Neck pain: Comment: 08/19/2025 Code(s): M54.2 - Cervicalgia Category: Medical Plan History of Present Illness The patient is a 30-year-old obese female presenting for an acute problem. She had a fall down a flight of stairs on Tuesday, after missing a step and sliding down from the top. She reports hitting the back of her head and neck. Since the fall, she has had major migraines in the back of her head, neck pain, and pain with every breath. She notes the pain is very strong, breaking through her prescribed tramadol. She has been taking ibuprofen, which helps a little, and has been sleeping for the past two days. The patient has a past medical history of chronic low back pain with associated left leg pain since 2019, which she feels is now worse after the fall. She has a known diagnosis of grade 1 anterolisthesis of L5 on S1, confirmed on a lumbar spine x-ray and compared to a [address] of the lumbar spine showed chronic anterolisthesis and degenerative changes at L5-S1 without pars interarticularis injury. For pain, she takes tramadol, anti-inflammatories, and muscle relaxants. Her other medical history includes asthma and generalized anxiety disorder, which is stable on sertraline 50 mg daily. She is a smoker. Health Maintenance - The patient was previously advised to keep active and exercise. - She reports that she normally walks two miles a day but has been unable to since her recent fall. Social History - Substance Use: The patient is a smoker. - Exercise: She reports normally walking two miles per day, but has been unable to do so since her fall. Review of Systems - Neurological: Reports severe migraines and headaches located in the back of the head since a fall. - Musculoskeletal: Reports severe neck pain that hurts to touch and with flexion. Also reports worsening of her chronic low back pain. - Respiratory: Reports pain with every breath. - General: Reports sleeping for the past two days. Denies any bruises from the fall. Physical Exam - General: Patient is awake and alert. - Neurological: Neurologically intact. Grossly intact cranial nerves. Moves arms and shoulders equally. Can lift both legs and dorsiflex toes equally. - Musculoskeletal: Walks without a limp. Points to her neck as the location of pain. Experiences pain with cervical flexion (chin to chest). - Skin: No redness or swelling noted over the cervical area. Results - Lumbar Spine X-Ray (June 09): Showed grade 1 anterolisthesis of L5 on S1, which was stable compared to an MRI from 2019. - CT Lumbar Spine: Showed chronic anterolisthesis and degenerative changes at L5-S1, with no evidence of pars interarticularis injury. Plan Patient was informed and verbally consented to the use of an ambient scribe for clinic note documentation during this visit. 1. Acute Neck Pain And Headaches Secondary To Fall The patient sustained a fall down stairs, resulting in headaches and neck pain. While the neurological exam is grossly intact, further evaluation is warranted to rule out acute injury. New x-rays will be ordered to assess for any new damage. A referral will be made for physical therapy. A prescription for lidocaine patches will be sent to help numb the area, and the patient was advised to continue ibuprofen with food for pain. Follow-up will occur after the x-ray results are reviewed. 2. Chronic Low Back Pain With Spondylolisthesis The patient has a history of chronic low back pain and known grade 1 anterolisthesis of L5 on S1, which is exacerbated by her recent fall. The planned physical therapy will also address this condition. The importance of remaining active to prevent stiffness was emphasized. She currently manages this with tramadol, anti-inflammatories, and muscle relaxants. 3. Generalized Anxiety Disorder The patient's generalized anxiety disorder is noted as stable. She continues to take sertraline 50 mg once daily. Discussion Notes I discussed with the patient that her neurological function appears to be intact following her fall, but that we need to investigate further to determine if any new damage has occurred. I explained that we would start with x-rays. I recommended physical therapy, explaining that movement is crucial to prevent stiffness, despite her initial reluctance. We talked about pain management, and I acknowledged that her current pain level is severe. I offered a prescription for lidocaine patches to provide localized relief for her neck, advising they cannot be used on the head, and that she should verify insurance coverage. I instructed her to get the x-rays done and advised that I will follow up on the results. Patient Instructions - Please go to the lab to have X-rays taken of your neck. - We are sending a referral for physical therapy. It is important to keep moving so you do not get stiff. - We have sent a prescription for lidocaine patches to your pharmacy. These can help numb the pain in your neck, but do not apply them to your head. - You may continue to take ibuprofen for pain, but be sure to take it with food to protect your stomach. - We will follow up with you once we have the results of your X-rays. - Please be careful to avoid further falls. Orders: Orders XR cervical spine 2V Today M54.2 - Cervicalgia PT Evaluation and Treatment Today M54.2 - Cervicalgia, M54.5 - Low back pain, W19.XXXA - Unspecified fall, initial encounter XR lumbar spine 2-3V Today M54.5 - Low back pain Medications: New lidocaine 5% leave on most painful area for up to 12 hrs 2 patches topical DAILY 30 ea 0RF M54.5 - Low back pain
--- OUTSIDE RECORDS SUMMARY | 2025-08-22 17:58 | XMS_ITS | Clinical Summary ---
Author Organization [employer] Address [address] [place] [address] [address] [place] [address] Care Team Providers Care Group Underwriter Name Role Phone Jeremiah Quin Unavailable Unavailable Social History Tobacco Use Types Packs/Day Years Used Date Smoking Tobacco: Never Assessed Comments Unknown Sex and Gender Information Value Date Recorded Sex Assigned at Female 08/16/2025 11:37 AM EDT Legal Sex Female 8:37 PM EDT Gender Identity Female 08/16/2025 11:37 AM EDT Sexual Orientation Choose not to disclose 2024 11:37 AM EDT Plan of Treatment Upcoming Encounters Date Type Department Care Team (Late st Contact Info) Description 09/11/2025 9:30 AM EST Office Visit [facility] [address] [place] [address] Ivelisse Valladares, OD [address] [place] [address] Health Maintenance Due Date Last Done Comments Depression Screening 1993 HIV Screening 1993 SDOH Screening 1993 Disability Screening 1993 Alcohol/Substance Use Screening 2005 Tobacco Screening 2005 Family Planning (PISQ) 2008 HPV Vaccines (1 - 3-dose series) 2008 Hepatitis C Screening 2011 Hepatitis B Vaccines (1 of 3 - 19+ 3-dose series) 2012 Pap Smear 2014 Pneumococcal Vaccine: Pediatrics (0 to 5 Years) and At-Risk Patients (6 to 49) Years (2 of 2 - PCV) 09/10/2020 09/10/2019 Cervical Cancer Screening 2023 HPV/Cotest 2023 COVID-19 Vaccine (3 - 2024-2 6 season) 2025 08/25/2021, 07/28/2021 Influenza Vaccine (#1) 2025 08/30/2010 DTaP/Tdap/Td Vaccines (4 - T d or Tdap) 06/20/2034 06/20/2024, 08/05/2016, 08/31/2010 Zoster Vaccines (1 of 2) 2043 RSV Patients and Patients Aged 60 years or older (1 - 1-dose 75+ series) 2068 HIB Vaccines Aged Out No longer eligi ble based on patient's age to complete this topic Hepatitis A Vaccines Aged Out No long er eligible based on patient's age to complete this topic IPV Vaccines Aged Out No longer eligi ble based on patient's age to complete this topic Meningococcal B Vaccine Aged Out No l onger eligible based on patient's age to complete this topic Meningococcal Vaccine Aged Out No johan brandee eligible based on patient's age to complete this topic RSV under 20 months Aged Out No longe r eligible based on patient's age to complete this topic Rotavirus Vaccines Aged Out No longer eligible based on patient's age to complete this topic Insurance [facility] Care Teams Group Underwriter Relationship Specialty Start Date End Date Quin Daniels Community Health Worker 03/10/23
--- OUTSIDE RECORDS SUMMARY | 2025-08-22 17:58 | XMS_ITS | Clinical Summary ---
Author Organization [facility] Address [address] [place], [place] [id number] Phone Care Team Providers Care Steward/Stewardess Economy Class Name Role Phone Isabel Lyman MD Primary Care Provider Allergies Active Allergy Reactions Criticality Noted Date Comments Penicillins Hives 11/06/2024 Medications traMADoL (ULTRAM) 50 mg tablet TAKE 1 TABLET BY MOUTH EVERY 6 TO 8 HOURS NEEDED FOR PAIN FOR 30 DAYS 5 Active sulfamethoxazo le-trimethopri m (BACTRIM DS) 800-160 mg per tablet Take 1 tablet by mouth 2 (two) times a day. 4 Active sertraline (ZOLOFT) 25 MG tablet Take 1 tablet by mouth every morning. 4 Active celecoxib (CELEBREX) 200 MG capsule Take 1 capsule by mouth every morning. 4 Active cyclobenzaprin e (FLEXERIL) 5 MG tablet TAKE 1 TABLET ORALLY 2 TIMES A DAY NEEDED FOR MUSCLE SPASM 5 Active gabapentin (NEURONTIN) 600 MG tablet Take 600 mg by mouth 3 (three) times a day. 5 Active nabumetone (RELAFEN) 500 MG tablet Take 1 tablet by mouth 2 (two) times a day. 4 Active nicotine (NICODERM CQ) 14 mg/24 hr APPLY 1 PATCH TRANSDERMALLY DAILY 4 Active nicotine (NICODERM CQ) 21 mg/24 hr APPLY 1 PATCH TRANSDERMALLY DAILY 4 Active Social History Tobacco Use Types Packs/Day Years Used Date Smoking Tobacco: Former Cigarettes Smokeless Tobacco: Never Tobacco Cessation:Counseling Given: Not Answered Education Answer Date Recorded Are you interested [...] on file Sexual Orientation Not on file Last Filed Vital Signs Vital Sign Reading Time Taken Comments Blood Pressure 123/84 11/06/2024 10:58 AM EST Pulse 64 11/06/2024 10:58 AM EST Temperature 36.6 C (97.9 F) 11/06/2024 10:58 AM EST Respiratory Rate 16 11/06/2024 10:58 AM EST Oxygen Saturation 100% 11/06/2024 10:58 AM EST Inhaled Oxygen Concentration - - Weight - - Height - - Body Mass Index - - Plan of Treatment Health Maintenance Due Date Last Done Comments DEPRESSION SCREENING 2005 SMOKING Hx and SMOKELESS TOBACCO SCREENING 2006 HEPATITIS C SCREENING 2011 HIV ONE-TIME SCREENING (18-6 5 YEARS) 2011 PAP SMEAR 2014 INFLUENZA VACCINE (#1) 2025 COVID-19 VACCINE (3 - 2024-2 6 season) 2025 08/25/2021, 07/28/2021 Adult Td,Tdap Booster 06/20/2034 06/20/2024 , 08/05/2016 PNEUMOCOCCAL VACCINES (0-49 years) Aged Out 09/10/2019 No longer eligible b ased on patient's age to complete this topic HEPATITIS A VACCINES Aged Out No long er eligible based on patient's age to complete this topic HIB VACCINES Aged Out No longer eligi ble based on patient's age to complete this topic MENINGOCOCCAL VACCINES (ACWY) Aged Out No longer eligible based on patient's age to complete this topic MENINGOCOCCAL VACCINES (B) Aged Out N o longer eligible based on patient's age to complete this topic Medical Devices Not on file [place] [address] [place] [address] [place] [address] [place] [address] [place] [address] [place] [address] [place] [address] [place] [address] [place] [address] ACO Care Teams Steward/Stewardess Economy Class Relationship Specialty Start Date End Date Isabel Lyman MD [address] [place] [address] [address] [place] [id number] PCP - General Internal Medicine 11/06/24 Additional Source Comments The information contained in this document represents components of the legal health record. It is not the complete legal health record.[facility]
== END 2025-08-22 15:44 | disposition home or self-care (01) ==
LOC: HO.HMCH 15:23
PROVIDERS: PCP Internal Medicine; Visit Provider Internal Medicine
DX: M54.50 Low back pain, unspecified (principal); F41.1 Generalized anxiety disorder; J45.20 Mild intermittent asthma, uncomplicated; W19.XXXA Unspecified fall, initial encounter; M54.2 Cervicalgia

== ENCOUNTER → 2025-08-22 16:01 | Outpatient (BNV) | payer OTHER, SELFPAY | PROVIDERS: PCP Internal Medicine; Visit Provider Radiology Diagnostic Radiology | DX: M54.50 Low back pain, unspecified (principal); M54.2 Cervicalgia | CPT/HCPCS: 72040; 72100 ==